=== PATIENT | female | born 1935 | race Caucasian/White ===

== ENCOUNTER 2020-07-21 10:42 | Outpatient (REF) | payer MEDICARE, SELFPAY ==
[2020-07-21 12:55] LABS: Estimated Average Glucose 120 mg/dL; Hemoglobin A1c % 5.8 %
[2020-07-21 13:18] LABS: Creatinine Urine 153.74 mg/dL; Microalbum/Creatinine Ratio Ur 22.1 ug/mg cr
[2020-07-21 13:26] LABS: Alanine Aminotransferase 13 U/L (0-31); Albumin Level 4.3 g/dL (3.5-5.0); Alkaline Phosphatase 76 U/L (39-117); Anion Gap 14 (12-20); Aspartate Amino Transferase 15 U/L (5-31); Bilirubin Total 0.9 mg/dL (0.0-1.0); Blood Urea Nitrogen 15 mg/dL (9-16); Calcium 8.8 mg/dL (8.4-10.2); Carbon Dioxide 25 mmol/L (22-29); Chloride 107 mmol/L (96-108); Cholesterol 198 mg/dL; Estimated Glomerular Filt Rate > 60; Glucose Fasting 110 mg/dL (60-99); HDL Cholesterol 73 mg/dL; LDL Cholesterol Calculated 105 mg/dl; Potassium 4.9 mmol/l (3.3-5.1); Sodium 141 mmol/L (135-145); Total Protein 6.3 g/dL (6.5-8.0); Triglycerides 102 mg/dL
[2020-07-21 13:38] LABS: TSH reflex Free T4 1.27 mIU/mL (0.32-4.0)
== END 2020-07-21 10:43 | disposition home or self-care (01) ==
LOC: HO.LAB 10:42
PROVIDERS: PCP Family Medicine; Visit Provider Family Medicine
DX: Z00.00 Encounter for general adult medical examination without abnormal findings (principal); I10 Essential (primary) hypertension
CPT/HCPCS: 80053; 80061; 82043; 83036; 84443

== ENCOUNTER 2020-08-11 16:05 | Outpatient (REF) | payer MEDICARE, SELFPAY ==
[2020-08-11 16:23] LABS: MANUAL DIFF FLAG NO
[2020-08-11 16:26] LABS: Basophils Absolute Auto 0.1 X10*3/uL (0.0-0.2); Basophils Percent Auto 0.8 % (0-2); Eosinophils Absolute Auto 0.1 X10*3/uL (0.0-0.4); Eosinophils Percent Auto 2.1 % (0-4); Hematocrit 43.4 % (37-47); Hemoglobin 13.6 g/dl (12.0-16.0); Imm Gran Abs Auto 0.11 X10*3/uL (0.00-0.03); Imm Gran Pct Auto 1.7 % (0.0-0.4); Lymphocytes Absolute Auto 1.6 X10*3/uL (1.2-4.9); Lymphocytes Percent Auto 24.3 % (20-40); Mean Corpuscular HGB Conc 31.3 g/dl (31.0-35.0); Mean Corpuscular Hemoglobin 28.6 pg (27.0-33.0); Mean Corpuscular Volume 91.2 fL (80-98); Mean Platelet Volume 12.1 fL (9.4-12.3); Monocytes Absolute Auto 0.8 X10*3/uL (0.1-1.2); Monocytes Percent Auto 11.5 % (2-11); Neutrophils Absolute Auto 3.9 X10*3/uL (2.0-8.3); Neutrophils Percent Auto 59.6 % (45-73); Platelet Count 176 X10*3/uL (160-400); Red Blood Count 4.76 X10*6/uL (4.20-5.50); Red Cell Distribution Width 13.1 % (11.0-16.0); White Blood Count 6.5 X10*3/uL (4.8-10.8)
[2020-08-11 16:46] LABS: Alanine Aminotransferase 18 U/L (0-31); Aspartate Amino Transferase 18 U/L (5-31); Estimated Glomerular Filt Rate > 60
== END 2020-08-11 16:06 | disposition home or self-care (01) ==
LOC: HO.LABR 16:05
PROVIDERS: PCP Family Medicine; Visit Provider Internal Medicine Rheumatology
DX: Z79.899 Other long term (current) drug therapy (principal)
CPT/HCPCS: 36415; 82565; 84450; 84460; 85025

== ENCOUNTER 2020-09-08 14:58 | Outpatient (REF) | payer MEDICARE, SELFPAY ==
[2020-09-08 15:32] LABS: MANUAL DIFF FLAG NO
[2020-09-08 15:43] LABS: Basophils Percent Auto 0.7 % (0-2); Eosinophils Absolute Auto 0.1 X10*3/uL (0.0-0.4); Eosinophils Percent Auto 1.7 % (0-4); Hematocrit 43.2 % (37-47); Hemoglobin 13.6 g/dl (12.0-16.0); Imm Gran Pct Auto 1.9 % (0.0-0.4); Lymphocytes Absolute Auto 1.3 X10*3/uL (1.2-4.9); Lymphocytes Percent Auto 24.3 % (20-40); Mean Corpuscular HGB Conc 31.5 g/dl (31.0-35.0); Mean Corpuscular Hemoglobin 28.5 pg (27.0-33.0); Mean Corpuscular Volume 90.4 fL (80-98); Mean Platelet Volume 12.3 fL (9.4-12.3); Monocytes Absolute Auto 0.8 X10*3/uL (0.1-1.2); Monocytes Percent Auto 14.6 % (2-11); Neutrophils Absolute Auto 3.1 X10*3/uL (2.0-8.3); Neutrophils Percent Auto 56.8 % (45-73); Platelet Count 196 X10*3/uL (160-400); Red Blood Count 4.78 X10*6/uL (4.20-5.50); Red Cell Distribution Width 13.1 % (11.0-16.0); White Blood Count 5.4 X10*3/uL (4.8-10.8)
[2020-09-08 16:00] LABS: Alanine Aminotransferase 18 U/L (0-31); Aspartate Amino Transferase 19 U/L (5-31); Estimated Glomerular Filt Rate > 60
== END 2020-09-08 14:59 | disposition home or self-care (01) ==
LOC: HO.LABR 14:58
PROVIDERS: PCP Family Medicine; Visit Provider Internal Medicine Rheumatology
DX: Z79.899 Other long term (current) drug therapy (principal)
CPT/HCPCS: 36415; 82565; 84450; 84460; 85025

== ENCOUNTER 2020-09-22 | Outpatient (REF) | payer MEDICARE, SELFPAY | END 2020-09-22 00:01 | disposition home or self-care (01) | LOC: HO.WFDLNP | PROVIDERS: Visit Provider Family Medicine | DX: R30.0 Dysuria (principal) | CPT/HCPCS: 87086; 87088; 87186 ==

== ENCOUNTER 2020-10-15 15:20 | Outpatient (REF) | payer MEDICARE, SELFPAY ==
[2020-10-15 15:50] LABS: MANUAL DIFF FLAG NO
[2020-10-15 15:54] LABS: Basophils Absolute Auto 0.1 X10*3/uL (0.0-0.2); Basophils Percent Auto 0.9 % (0-2); Eosinophils Absolute Auto 0.1 X10*3/uL (0.0-0.4); Eosinophils Percent Auto 1.9 % (0-4); Hematocrit 41.7 % (37-47); Hemoglobin 13.2 g/dl (12.0-16.0); Imm Gran Abs Auto 0.09 X10*3/uL (0.00-0.03); Imm Gran Pct Auto 1.4 % (0.0-0.4); Lymphocytes Absolute Auto 1.4 X10*3/uL (1.2-4.9); Lymphocytes Percent Auto 22.2 % (20-40); Mean Corpuscular HGB Conc 31.7 g/dl (31.0-35.0); Mean Corpuscular Hemoglobin 28.4 pg (27.0-33.0); Mean Corpuscular Volume 89.9 fL (80-98); Mean Platelet Volume 11.9 fL (9.4-12.3); Monocytes Absolute Auto 0.8 X10*3/uL (0.1-1.2); Neutrophils Percent Auto 61.6 % (45-73); Platelet Count 214 X10*3/uL (160-400); Red Blood Count 4.64 X10*6/uL (4.20-5.50); White Blood Count 6.4 X10*3/uL (4.8-10.8)
[2020-10-15 16:18] LABS: Alanine Aminotransferase 17 U/L (0-31); Aspartate Amino Transferase 20 U/L (5-31); Estimated Glomerular Filt Rate > 60
== END 2020-10-15 15:21 | disposition home or self-care (01) ==
LOC: HO.LABR 15:20
PROVIDERS: PCP Family Medicine; Visit Provider Internal Medicine Rheumatology
DX: Z79.899 Other long term (current) drug therapy (principal)
CPT/HCPCS: 36415; 82565; 84450; 84460; 85025

== ENCOUNTER 2020-12-09 10:37 | Outpatient (REF) | payer MEDICARE, SELFPAY | END 2020-12-09 10:38 | disposition home or self-care (01) | LOC: HO.LNP 10:37 | PROVIDERS: Visit Provider Family Medicine | DX: R30.0 Dysuria (principal) | CPT/HCPCS: 87086; 87088; 87186 ==

== ENCOUNTER 2020-12-16 15:43 | Outpatient (REF) | payer MEDICARE, SELFPAY ==
[2020-12-16 16:20] LABS: MANUAL DIFF FLAG NO
[2020-12-16 16:26] LABS: Basophils Absolute Auto 0.1 X10*3/uL (0.0-0.2); Eosinophils Absolute Auto 0.1 X10*3/uL (0.0-0.4); Eosinophils Percent Auto 1.7 % (0-4); Hematocrit 40.3 % (37-47); Hemoglobin 12.7 g/dl (12.0-16.0); Imm Gran Abs Auto 0.11 X10*3/uL (0.00-0.03); Imm Gran Pct Auto 1.8 % (0.0-0.4); Lymphocytes Absolute Auto 1.3 X10*3/uL (1.2-4.9); Lymphocytes Percent Auto 21.4 % (20-40); Mean Corpuscular HGB Conc 31.5 g/dl (31.0-35.0); Mean Corpuscular Hemoglobin 28.3 pg (27.0-33.0); Mean Platelet Volume 11.9 fL (9.4-12.3); Monocytes Absolute Auto 0.8 X10*3/uL (0.1-1.2); Monocytes Percent Auto 13.7 % (2-11); Neutrophils Absolute Auto 3.6 X10*3/uL (2.0-8.3); Neutrophils Percent Auto 60.4 % (45-73); Platelet Count 197 X10*3/uL (160-400); Red Blood Count 4.48 X10*6/uL (4.20-5.50); Red Cell Distribution Width 13.3 % (11.0-16.0)
[2020-12-16 16:51] LABS: Anion Gap 14 (12-20); Blood Urea Nitrogen 19 mg/dL (9-16); Calcium 8.7 mg/dL (8.4-10.2); Carbon Dioxide 24 mmol/L (22-29); Chloride 105 mmol/L (96-108); Estimated Glomerular Filt Rate > 60; Glucose Random 116 mg/dL (60-115); Potassium 4.4 mmol/L (3.3-5.1); Sodium 139 mmol/L (135-145)
[2020-12-16 16:53] LABS: Alanine Aminotransferase 13 U/L (0-31); Aspartate Amino Transferase 16 U/L (5-31); Estimated Glomerular Filt Rate > 60
== END 2020-12-16 15:44 | disposition home or self-care (01) ==
LOC: HO.LABR 15:43
PROVIDERS: Absent Provider Family Medicine; PCP Family Medicine; Visit Provider Internal Medicine Rheumatology
DX: Z00.00 Encounter for general adult medical examination without abnormal findings (principal); Z79.899 Other long term (current) drug therapy
CPT/HCPCS: 36415; 80048; 82565; 84450; 84460; 85025

== ENCOUNTER 2021-01-18 14:40 | Outpatient (REF) | payer MEDICARE, SELFPAY ==
[2021-01-18 15:19] LABS: MANUAL DIFF FLAG NO
[2021-01-18 15:30] LABS: Basophils Absolute Auto 0.1 X10*3/uL (0.0-0.2); Eosinophils Absolute Auto 0.1 X10*3/uL (0.0-0.4); Eosinophils Percent Auto 1.7 % (0-4); Hematocrit 42.3 % (37-47); Hemoglobin 13.2 g/dl (12.0-16.0); Imm Gran Abs Auto 0.15 X10*3/uL (0.00-0.03); Imm Gran Pct Auto 2.6 % (0.0-0.4); Lymphocytes Absolute Auto 1.4 X10*3/uL (1.2-4.9); Lymphocytes Percent Auto 23.4 % (20-40); Mean Corpuscular HGB Conc 31.2 g/dl (31.0-35.0); Mean Corpuscular Hemoglobin 28.3 pg (27.0-33.0); Mean Corpuscular Volume 90.8 fL (80-98); Mean Platelet Volume 11.9 fL (9.4-12.3); Monocytes Absolute Auto 0.8 X10*3/uL (0.1-1.2); Monocytes Percent Auto 14.6 % (2-11); Neutrophils Absolute Auto 3.3 X10*3/uL (2.0-8.3); Neutrophils Percent Auto 56.7 % (45-73); Platelet Count 221 X10*3/uL (160-400); Red Blood Count 4.66 X10*6/uL (4.20-5.50); Red Cell Distribution Width 13.2 % (11.0-16.0); White Blood Count 5.8 X10*3/uL (4.8-10.8)
[2021-01-18 15:46] LABS: Alanine Aminotransferase 12 U/L (0-31); Aspartate Amino Transferase 20 U/L (5-31); Estimated Glomerular Filt Rate > 60
== END 2021-01-18 14:41 | disposition home or self-care (01) ==
LOC: HO.LABR 14:40
PROVIDERS: PCP Family Medicine; Visit Provider Internal Medicine Rheumatology
DX: Z79.899 Other long term (current) drug therapy (principal)
CPT/HCPCS: 36415; 82565; 84450; 84460; 85025

== ENCOUNTER 2021-01-22 14:04 | Outpatient (REF) | payer MEDICARE, SELFPAY ==
[2021-01-22 14:26] LABS: Glucose Urine UA NEG (NEG); Leukocyte Esterase Urine 1+ (NEG); Nitrite Urine NEG (NEG); PH 5.5 (5.0-8.0); Specific Gravity - Urine 1.025 (1.005-1.025); Urine Blood 2+ (NEG); Urine Ketones NEG (NEG); Urine Protein NEG (NEG-TRACE)
[2021-01-22 14:28] LABS: Appearance Urine HAZY; Color Urine YELLOW
[2021-01-22 14:38] LABS: Bacteria Urine TRACE /LPF; Squamous Epithelial Cell Urine TRACE /LPF; WBC Urine 30-49 /HPF (0-4)
== END 2021-01-22 14:05 | disposition home or self-care (01) ==
LOC: HO.LNP 14:04
PROVIDERS: Visit Provider Family Medicine
DX: R30.0 Dysuria (principal)
CPT/HCPCS: 81001; 87086; 87088; 87186

== ENCOUNTER 2021-02-15 15:01 | Outpatient (REF) | payer MEDICARE, SELFPAY ==
[2021-02-15 15:29] LABS: MANUAL DIFF FLAG NO
[2021-02-15 15:35] LABS: Basophils Absolute Auto 0.1 X10*3/uL (0.0-0.2); Basophils Percent Auto 1.1 % (0-2); Eosinophils Absolute Auto 0.1 X10*3/uL (0.0-0.4); Eosinophils Percent Auto 2.5 % (0-4); Hematocrit 40.8 % (37-47); Hemoglobin 12.8 g/dl (12.0-16.0); Imm Gran Abs Auto 0.07 X10*3/uL (0.00-0.03); Imm Gran Pct Auto 1.5 % (0.0-0.4); Lymphocytes Absolute Auto 1.3 X10*3/uL (1.2-4.9); Lymphocytes Percent Auto 26.8 % (20-40); Mean Corpuscular HGB Conc 31.4 g/dl (31.0-35.0); Mean Corpuscular Hemoglobin 28.5 pg (27.0-33.0); Mean Corpuscular Volume 90.9 fL (80-98); Mean Platelet Volume 11.9 fL (9.4-12.3); Monocytes Absolute Auto 0.6 X10*3/uL (0.1-1.2); Monocytes Percent Auto 12.1 % (2-11); Neutrophils Absolute Auto 2.7 X10*3/uL (2.0-8.3); Platelet Count 190 X10*3/uL (160-400); Red Blood Count 4.49 X10*6/uL (4.20-5.50); Red Cell Distribution Width 13.3 % (11.0-16.0); White Blood Count 4.7 X10*3/uL (4.8-10.8)
[2021-02-15 15:53] LABS: Alanine Aminotransferase 14 U/L (0-31); Aspartate Amino Transferase 15 U/L (5-31); Estimated Glomerular Filt Rate > 60
== END 2021-02-15 15:02 | disposition home or self-care (01) ==
LOC: HO.LABR 15:01
PROVIDERS: PCP Family Medicine; Visit Provider Internal Medicine Rheumatology
DX: Z79.899 Other long term (current) drug therapy (principal)
CPT/HCPCS: 36415; 82565; 84450; 84460; 85025

== ENCOUNTER 2021-04-20 15:22 | Outpatient (REF) | payer MEDICARE, SELFPAY ==
[2021-04-20 15:53] LABS: MANUAL DIFF FLAG NO
[2021-04-20 15:54] LABS: Basophils Absolute Auto 0.1 X10*3/uL (0.0-0.2); Basophils Percent Auto 0.8 % (0-2); Eosinophils Absolute Auto 0.1 X10*3/uL (0.0-0.4); Eosinophils Percent Auto 1.7 % (0-4); Hematocrit 41.5 % (37-47); Hemoglobin 13.1 g/dl (12.0-16.0); Imm Gran Abs Auto 0.19 X10*3/uL (0.00-0.03); Imm Gran Pct Auto 3.1 % (0.0-0.4); Lymphocytes Absolute Auto 1.5 X10*3/uL (1.2-4.9); Lymphocytes Percent Auto 24.6 % (20-40); Mean Corpuscular HGB Conc 31.6 g/dl (31.0-35.0); Mean Corpuscular Hemoglobin 28.4 pg (27.0-33.0); Mean Platelet Volume 12.6 fL (9.4-12.3); Monocytes Absolute Auto 0.8 X10*3/uL (0.1-1.2); Monocytes Percent Auto 13.2 % (2-11); Neutrophils Absolute Auto 3.4 X10*3/uL (2.0-8.3); Neutrophils Percent Auto 56.6 % (45-73); Platelet Count 188 X10*3/uL (160-400); Red Blood Count 4.61 X10*6/uL (4.20-5.50); Red Cell Distribution Width 13.3 % (11.0-16.0); White Blood Count 6.1 X10*3/uL (4.8-10.8)
[2021-04-20 16:15] LABS: Alanine Aminotransferase 15 U/L (0-31); Aspartate Amino Transferase 18 U/L (5-31); Estimated Glomerular Filt Rate > 60
== END 2021-04-20 15:23 | disposition home or self-care (01) ==
LOC: HO.LABR 15:22
PROVIDERS: PCP Family Medicine; Visit Provider Internal Medicine Rheumatology
DX: Z79.899 Other long term (current) drug therapy (principal)
CPT/HCPCS: 36415; 82565; 84450; 84460; 85025

== ENCOUNTER 2021-06-11 14:59 | Outpatient (REF) | payer MEDICARE, SELFPAY ==
[2021-06-11 16:00] LABS: MANUAL DIFF FLAG NO
[2021-06-11 16:04] LABS: Basophils Percent Auto 0.8 % (0-2); Eosinophils Absolute Auto 0.1 X10*3/uL (0.0-0.4); Eosinophils Percent Auto 2.3 % (0-4); Hematocrit 40.1 % (37-47); Hemoglobin 12.7 g/dl (12.0-16.0); Imm Gran Abs Auto 0.14 X10*3/uL (0.00-0.03); Imm Gran Pct Auto 2.7 % (0.0-0.4); Lymphocytes Absolute Auto 1.3 X10*3/uL (1.2-4.9); Lymphocytes Percent Auto 23.7 % (20-40); Mean Corpuscular HGB Conc 31.7 g/dl (31.0-35.0); Mean Corpuscular Hemoglobin 28.5 pg (27.0-33.0); Mean Corpuscular Volume 89.9 fL (80-98); Mean Platelet Volume 12.3 fL (9.4-12.3); Monocytes Absolute Auto 0.8 X10*3/uL (0.1-1.2); Monocytes Percent Auto 14.6 % (2-11); Neutrophils Percent Auto 55.9 % (45-73); Platelet Count 205 X10*3/uL (160-400); Red Blood Count 4.46 X10*6/uL (4.20-5.50); Red Cell Distribution Width 13.2 % (11.0-16.0); White Blood Count 5.3 X10*3/uL (4.8-10.8)
[2021-06-11 16:45] LABS: Alanine Aminotransferase 14 U/L (0-31); Aspartate Amino Transferase 15 U/L (5-31); Estimated Glomerular Filt Rate > 60
== END 2021-06-11 15:00 | disposition home or self-care (01) ==
LOC: HO.LABR 14:59
PROVIDERS: PCP Family Medicine; Visit Provider Internal Medicine Rheumatology
DX: Z79.899 Other long term (current) drug therapy (principal)
CPT/HCPCS: 36415; 82565; 84450; 84460; 85025

== ENCOUNTER 2021-08-16 14:03 | Outpatient (REF) | payer MEDICARE, SELFPAY ==
[2021-08-16 14:23] LABS: MANUAL DIFF FLAG NO
[2021-08-16 14:44] LABS: Basophils Percent Auto 0.6 % (0-2); Eosinophils Absolute Auto 0.1 X10*3/uL (0.0-0.4); Eosinophils Percent Auto 1.7 % (0-4); Hematocrit 41.4 % (37.0-47.0); Hemoglobin 13.2 g/dl (12.0-16.0); Imm Gran Abs Auto 0.11 X10*3/uL (0.00-0.03); Imm Gran Pct Auto 2.1 % (0.0-0.4); Lymphocytes Absolute Auto 1.2 X10*3/uL (1.2-4.9); Lymphocytes Percent Auto 22.2 % (20-40); Mean Corpuscular HGB Conc 31.9 g/dl (31.0-35.0); Mean Corpuscular Hemoglobin 28.1 pg (27.0-33.0); Mean Corpuscular Volume 88.1 fL (80.0-98.0); Mean Platelet Volume 12.4 fL (9.4-12.3); Monocytes Absolute Auto 0.8 X10*3/uL (0.1-1.2); Monocytes Percent Auto 14.6 % (2-11); Neutrophils Absolute Auto 3.1 x10*3/uL (2.0-8.3); Neutrophils Percent Auto 58.8 % (45-73); Platelet Count 199 X10*3/uL (160-400); White Blood Count 5.3 X10*3/uL (4.8-10.8)
[2021-08-16 15:06] LABS: Alanine Aminotransferase 15 U/L (0-31); Aspartate Amino Transferase 18 U/L (5-31); Estimated Glomerular Filt Rate > 60
== END 2021-08-16 14:04 | disposition home or self-care (01) ==
LOC: HO.LABR 14:03
PROVIDERS: PCP Family Medicine; Visit Provider Internal Medicine Rheumatology
DX: Z79.899 Other long term (current) drug therapy (principal)
CPT/HCPCS: 36415; 82565; 84450; 84460; 85025

== ENCOUNTER 2021-09-28 10:56 | Outpatient (REF) | payer MEDICARE, SELFPAY ==
[2021-09-28 11:18] LABS: MANUAL DIFF FLAG NO
[2021-09-28 12:15] LABS: Basophils Percent Auto 0.9 % (0-2); Eosinophils Absolute Auto 0.1 X10*3/uL (0.0-0.4); Hematocrit 41.5 % (37.0-47.0); Hemoglobin 13.1 g/dl (12.0-16.0); Imm Gran Abs Auto 0.09 X10*3/uL (0.00-0.03); Lymphocytes Percent Auto 22.1 % (20-40); Mean Corpuscular HGB Conc 31.6 g/dl (31.0-35.0); Mean Corpuscular Hemoglobin 28.2 pg (27.0-33.0); Mean Corpuscular Volume 89.2 fL (80.0-98.0); Mean Platelet Volume 12.7 fL (9.4-12.3); Monocytes Absolute Auto 0.5 X10*3/uL (0.1-1.2); Monocytes Percent Auto 11.7 % (2-11); Neutrophils Absolute Auto 2.8 x10*3/uL (2.0-8.3); Neutrophils Percent Auto 61.3 % (45-73); Platelet Count 191 X10*3/uL (160-400); Red Blood Count 4.65 X10*6/uL (4.20-5.50); Red Cell Distribution Width 13.5 % (11.0-16.0); White Blood Count 4.6 X10*3/uL (4.8-10.8)
[2021-09-28 12:21] LABS: Appearance Urine CLEAR; Color Urine YELLOW; Glucose Urine UA NEG (NEG); Leukocyte Esterase Urine NEG (NEG); Nitrite Urine NEG (NEG); PH 5.5 (5.0-8.0); Specific Gravity - Urine >= 1.030 (1.005-1.025); Urine Blood NEG (NEG); Urine Ketones NEG (NEG); Urine Protein NEG (NEG-TRACE)
[2021-09-28 12:48] LABS: Alanine Aminotransferase 15 U/L (0-31); Albumin Level 4.1 g/dL (3.5-5.0); Alkaline Phosphatase 78 U/L (39-117); Anion Gap 10 (12-20); Aspartate Amino Transferase 13 U/L (5-31); Bilirubin Total 0.8 mg/dL (0.0-1.0); Blood Urea Nitrogen 13 mg/dL (9-16); Calcium 9.2 mg/dL (8.4-10.2); Carbon Dioxide 26 mmol/L (22-29); Chloride 110 mmol/L (96-108); Cholesterol 194 mg/dL; Estimated Glomerular Filt Rate > 60; Glucose Fasting 117 mg/dL (60-99); HDL Cholesterol 70 mg/dL; LDL Cholesterol Calculated 102 mg/dl; Potassium 4.3 mmol/L (3.3-5.1); Sodium 142 mmol/L (135-145); Total Protein 6.1 g/dL (6.5-8.0); Triglycerides 111 mg/dL
[2021-09-28 12:49] LABS: Creatinine Urine 89.13 mg/dL; Microalbum/Creatinine Ratio Ur 26.9 ug/mg cr
[2021-09-28 12:56] LABS: TSH reflex Free T4 1.72 uIU/mL (0.32-4.0)
== END 2021-09-28 10:57 | disposition home or self-care (01) ==
LOC: HO.LAB 10:56
PROVIDERS: PCP Family Medicine; Visit Provider Family Medicine
DX: Z00.00 Encounter for general adult medical examination without abnormal findings (principal); I10 Essential (primary) hypertension; Z13.220 Encounter for screening for lipoid disorders; Z13.29 Encounter for screening for other suspected endocrine disorder
CPT/HCPCS: 36415; 80053; 80061; 81003; 82043; 84443; 85025

== ENCOUNTER 2021-10-12 15:43 | Outpatient (REF) | payer MEDICARE, SELFPAY ==
[2021-10-12 16:00] LABS: MANUAL DIFF FLAG NO
[2021-10-12 16:18] LABS: Basophils Absolute Auto 0.1 X10*3/uL (0.0-0.2); Basophils Percent Auto 0.9 % (0-2); Eosinophils Absolute Auto 0.1 X10*3/uL (0.0-0.4); Eosinophils Percent Auto 1.7 % (0-4); Hematocrit 42.8 % (37.0-47.0); Hemoglobin 13.5 g/dl (12.0-16.0); Imm Gran Abs Auto 0.11 X10*3/uL (0.00-0.03); Imm Gran Pct Auto 1.9 % (0.0-0.4); Lymphocytes Absolute Auto 1.4 X10*3/uL (1.2-4.9); Lymphocytes Percent Auto 24.3 % (20-40); Mean Corpuscular HGB Conc 31.5 g/dl (31.0-35.0); Mean Corpuscular Hemoglobin 28.2 pg (27.0-33.0); Mean Corpuscular Volume 89.5 fL (80.0-98.0); Mean Platelet Volume 12.2 fL (9.4-12.3); Monocytes Absolute Auto 0.7 X10*3/uL (0.1-1.2); Neutrophils Absolute Auto 3.4 x10*3/uL (2.0-8.3); Neutrophils Percent Auto 59.2 % (45-73); Platelet Count 188 X10*3/uL (160-400); Red Blood Count 4.78 X10*6/uL (4.20-5.50); Red Cell Distribution Width 13.3 % (11.0-16.0); White Blood Count 5.8 X10*3/uL (4.8-10.8)
[2021-10-12 16:41] LABS: Alanine Aminotransferase 13 U/L (0-31); Aspartate Amino Transferase 17 U/L (5-31); Estimated Glomerular Filt Rate > 60
== END 2021-10-12 15:44 | disposition home or self-care (01) ==
LOC: HO.LABR 15:43
PROVIDERS: PCP Family Medicine; Visit Provider Internal Medicine Rheumatology
DX: Z79.899 Other long term (current) drug therapy (principal)
CPT/HCPCS: 36415; 82565; 84450; 84460; 85025

== ENCOUNTER 2021-12-17 15:26 | Outpatient (REF) | payer MEDICARE, SELFPAY ==
[2021-12-17 15:38] LABS: MANUAL DIFF FLAG NO
[2021-12-17 16:12] LABS: Basophils Absolute Auto 0.1 X10*3/uL (0.0-0.2); Basophils Percent Auto 0.8 % (0-2); Eosinophils Absolute Auto 0.1 X10*3/uL (0.0-0.4); Eosinophils Percent Auto 1.6 % (0-4); Hematocrit 43.4 % (37.0-47.0); Hemoglobin 13.2 g/dl (12.0-16.0); Imm Gran Abs Auto 0.12 X10*3/uL (0.00-0.03); Imm Gran Pct Auto 1.6 % (0.0-0.4); Lymphocytes Absolute Auto 1.6 X10*3/uL (1.2-4.9); Lymphocytes Percent Auto 21.5 % (20-40); Mean Corpuscular HGB Conc 30.4 g/dl (31.0-35.0); Mean Corpuscular Hemoglobin 27.5 pg (27.0-33.0); Mean Corpuscular Volume 90.4 fL (80.0-98.0); Mean Platelet Volume 12.7 fL (9.4-12.3); Neutrophils Absolute Auto 4.6 x10*3/uL (2.0-8.3); Neutrophils Percent Auto 61.5 % (45-73); Platelet Count 195 X10*3/uL (160-400); Red Cell Distribution Width 13.6 % (11.0-16.0); White Blood Count 7.4 X10*3/uL (4.8-10.8)
[2021-12-17 16:36] LABS: Alanine Aminotransferase 16 U/L (0-31); Aspartate Amino Transferase 16 U/L (5-31); Estimated Glomerular Filt Rate > 60
== END 2021-12-17 15:27 | disposition home or self-care (01) ==
LOC: HO.LABR 15:26
PROVIDERS: PCP Family Medicine; Visit Provider Internal Medicine Rheumatology
DX: Z79.899 Other long term (current) drug therapy (principal)
CPT/HCPCS: 36415; 82565; 84450; 84460; 85025

== ENCOUNTER 2022-02-11 15:34 | Outpatient (REF) | payer MEDICARE, SELFPAY ==
[2022-02-11 17:23] LABS: Hemoglobin 13.3 g/dl (12.0-16.0); Mean Corpuscular HGB Conc 31.1 g/dl (31.0-35.0); PLT CLUMP 1; SCAN SMEAR FLAG 1
[2022-02-11 17:25] LABS: Basophils Percent Auto 0.7 % (0-2); Eosinophils Absolute Auto 0.1 X10*3/uL (0.0-0.4); Hematocrit 42.8 % (37.0-47.0); Imm Gran Abs Auto 0.09 X10*3/uL (0.00-0.03); Imm Gran Pct Auto 1.6 % (0.0-0.4); Lymphocytes Absolute Auto 1.5 X10*3/uL (1.2-4.9); Lymphocytes Percent Auto 26.5 % (20-40); MANUAL DIFF FLAG SCAN; Mean Corpuscular Hemoglobin 28.1 pg (27.0-33.0); Mean Corpuscular Volume 90.3 fL (80.0-98.0); Monocytes Absolute Auto 0.7 X10*3/uL (0.1-1.2); Monocytes Percent Auto 13.4 % (2-11); Neutrophils Absolute Auto 3.1 x10*3/uL (2.0-8.3); Neutrophils Percent Auto 55.8 % (45-73); Red Blood Count 4.74 X10*6/uL (4.20-5.50); Red Cell Distribution Width 13.5 % (11.0-16.0)
[2022-02-11 17:39] LABS: Alanine Aminotransferase 16 U/L (0-31); Aspartate Amino Transferase 21 U/L (5-31); Estimated Glomerular Filt Rate > 60
[2022-02-11 17:43] LABS: PLT ABN DIST 1
[2022-02-11 17:44] LABS: White Blood Count 5.5 X10*3/uL (4.8-10.8)
[2022-02-11 17:58] LABS: SLIDE REVIEW VERIFIED
== END 2022-02-11 15:35 | disposition home or self-care (01) ==
LOC: HO.LABR 15:34
PROVIDERS: PCP Family Medicine; Visit Provider Internal Medicine Rheumatology
DX: Z79.899 Other long term (current) drug therapy (principal)
CPT/HCPCS: 36415; 82565; 84450; 84460; 85025

== ENCOUNTER 2022-05-13 15:40 | Outpatient (REF) | payer MEDICARE, SELFPAY ==
[2022-05-13 16:30] LABS: Basophils Absolute Auto 0.1 X10*3/uL (0.0-0.2); Basophils Percent Auto 0.8 % (0-2); Eosinophils Absolute Auto 0.1 X10*3/uL (0.0-0.4); Eosinophils Percent Auto 1.7 % (0-4); Hemoglobin 13.7 g/dl (12.0-16.0); SCAN SMEAR FLAG 1
[2022-05-13 16:32] LABS: Hematocrit 42.7 % (37.0-47.0); Imm Gran Abs Auto 0.08 X10*3/uL (0.00-0.03); Imm Gran Pct Auto 1.3 % (0.0-0.4); Lymphocytes Absolute Auto 1.7 X10*3/uL (1.2-4.9); Lymphocytes Percent Auto 27.6 % (20-40); MANUAL DIFF FLAG SCAN; Mean Corpuscular HGB Conc 32.1 g/dl (31.0-35.0); Mean Corpuscular Volume 87.3 fL (80.0-98.0); Mean Platelet Volume 12.8 fL (9.4-12.3); Monocytes Absolute Auto 0.7 X10*3/uL (0.1-1.2); Monocytes Percent Auto 11.2 % (2-11); Neutrophils Absolute Auto 3.4 x10*3/uL (2.0-8.3); Neutrophils Percent Auto 57.4 % (45-73); Platelet Count 177 X10*3/uL (160-400); Red Blood Count 4.89 X10*6/uL (4.20-5.50); Red Cell Distribution Width 13.7 % (11.0-16.0)
[2022-05-13 16:34] LABS: PLT ABN DIST 1
[2022-05-13 16:48] LABS: SLIDE REVIEW VERIFIED
== END 2022-05-13 15:41 | disposition home or self-care (01) ==
LOC: HO.LABR 15:40
PROVIDERS: PCP Family Medicine; Visit Provider Internal Medicine Rheumatology
DX: Z79.899 Other long term (current) drug therapy (principal)
CPT/HCPCS: 36415; 85025

== ENCOUNTER 2022-05-16 11:09 | Outpatient (REF) | payer MEDICARE, SELFPAY ==
[2022-05-16 11:56] LABS: Basophils Absolute Auto 0.1 X10*3/uL (0.0-0.2); Basophils Percent Auto 1.5 % (0-2); Eosinophils Absolute Auto 0.1 X10*3/uL (0.0-0.4); Eosinophils Percent Auto 1.5 % (0-4); Hematocrit 43.3 % (37.0-47.0); Hemoglobin 13.8 g/dl (12.0-16.0); Imm Gran Abs Auto 0.08 X10*3/uL (0.00-0.03); Imm Gran Pct Auto 1.5 % (0.0-0.4); Lymphocytes Absolute Auto 1.2 X10*3/uL (1.2-4.9); Lymphocytes Percent Auto 21.4 % (20-40); MANUAL DIFF FLAG NO; Mean Corpuscular HGB Conc 31.9 g/dl (31.0-35.0); Mean Corpuscular Hemoglobin 27.9 pg (27.0-33.0); Mean Corpuscular Volume 87.7 fL (80.0-98.0); Mean Platelet Volume 12.5 fL (9.4-12.3); Monocytes Absolute Auto 0.6 X10*3/uL (0.1-1.2); Monocytes Percent Auto 10.9 % (2-11); Neutrophils Absolute Auto 3.4 x10*3/uL (2.0-8.3); Neutrophils Percent Auto 63.2 % (45-73); Platelet Count 182 X10*3/uL (160-400); Red Blood Count 4.94 X10*6/uL (4.20-5.50); Red Cell Distribution Width 13.8 % (11.0-16.0); White Blood Count 5.4 X10*3/uL (4.8-10.8)
[2022-05-16 13:08] LABS: Alanine Aminotransferase 13 U/L (0-31); Aspartate Amino Transferase 16 U/L (5-31); Estimated Glomerular Filt Rate > 60
== END 2022-05-16 11:10 | disposition home or self-care (01) ==
LOC: HO.LABR 11:09
PROVIDERS: PCP Family Medicine; Visit Provider Internal Medicine Rheumatology
DX: Z79.899 Other long term (current) drug therapy (principal)
CPT/HCPCS: 36415; 82565; 84450; 84460; 85025

== ENCOUNTER 2022-06-15 16:04 | Outpatient (REF) | payer MEDICARE, SELFPAY ==
[2022-06-15 16:26] LABS: MANUAL DIFF FLAG NO
[2022-06-15 17:44] LABS: Basophils Absolute Auto 0.1 X10*3/uL (0.0-0.2); Basophils Percent Auto 1.2 % (0-2); Eosinophils Absolute Auto 0.2 X10*3/uL (0.0-0.4); Eosinophils Percent Auto 2.6 % (0-4); Hematocrit 42.5 % (37.0-47.0); Hemoglobin 13.5 g/dl (12.0-16.0); Imm Gran Abs Auto 0.09 X10*3/uL (0.00-0.03); Imm Gran Pct Auto 1.5 % (0.0-0.4); Lymphocytes Absolute Auto 1.5 X10*3/uL (1.2-4.9); Lymphocytes Percent Auto 25.9 % (20-40); Mean Corpuscular HGB Conc 31.8 g/dl (31.0-35.0); Mean Corpuscular Hemoglobin 28.2 pg (27.0-33.0); Mean Corpuscular Volume 88.7 fL (80.0-98.0); Monocytes Absolute Auto 0.7 X10*3/uL (0.1-1.2); Monocytes Percent Auto 12.7 % (2-11); Neutrophils Absolute Auto 3.3 x10*3/uL (2.0-8.3); Neutrophils Percent Auto 56.1 % (45-73); Platelet Count 177 X10*3/uL (160-400); Red Blood Count 4.79 X10*6/uL (4.20-5.50); Red Cell Distribution Width 13.7 % (11.0-16.0); White Blood Count 5.8 X10*3/uL (4.8-10.8)
[2022-06-15 18:04] LABS: Alanine Aminotransferase 14 U/L (0-31); Aspartate Amino Transferase 19 U/L (5-31); Estimated Glomerular Filt Rate > 60
== END 2022-06-15 16:05 | disposition home or self-care (01) ==
LOC: HO.LABR 16:04
PROVIDERS: PCP Family Medicine; Visit Provider Internal Medicine Rheumatology
DX: Z79.899 Other long term (current) drug therapy (principal)
CPT/HCPCS: 36415; 82565; 84450; 84460; 85025

== ENCOUNTER 2022-10-05 10:27 | Outpatient (REF) | payer MEDICARE, SELFPAY ==
[2022-10-05 13:59] LABS: MANUAL DIFF FLAG NO
[2022-10-05 14:07] LABS: Basophils Absolute Auto 0.1 X10*3/uL (0.0-0.2); Eosinophils Absolute Auto 0.2 X10*3/uL (0.0-0.4); Eosinophils Percent Auto 2.6 % (0-4); Hematocrit 45.1 % (37.0-47.0); Hemoglobin 14.3 g/dl (12.0-16.0); Imm Gran Abs Auto 0.07 X10*3/uL (0.00-0.03); Imm Gran Pct Auto 1.2 % (0.0-0.4); Lymphocytes Absolute Auto 1.6 X10*3/uL (1.2-4.9); Mean Corpuscular HGB Conc 31.7 g/dl (31.0-35.0); Mean Corpuscular Hemoglobin 28.4 pg (27.0-33.0); Mean Corpuscular Volume 89.7 fL (80.0-98.0); Monocytes Absolute Auto 0.7 X10*3/uL (0.1-1.2); Monocytes Percent Auto 11.4 % (2-11); Neutrophils Absolute Auto 3.3 x10*3/uL (2.0-8.3); Neutrophils Percent Auto 55.8 % (45-73); Platelet Count 187 X10*3/uL (160-400); Red Blood Count 5.03 X10*6/uL (4.20-5.50); Red Cell Distribution Width 13.5 % (11.0-16.0); White Blood Count 5.9 X10*3/uL (4.8-10.8)
[2022-10-05 14:44] LABS: Alanine Aminotransferase 15 U/L (0-31); Albumin Level 4.1 g/dL (3.5-5.0); Alkaline Phosphatase 84 U/L (39-117); Anion Gap 11 (12-20); Aspartate Amino Transferase 17 U/L (5-31); Bilirubin Total 0.9 mg/dL (0.0-1.0); Blood Urea Nitrogen 15 mg/dL (9-16); Calcium 9.1 mg/dL (8.4-10.2); Carbon Dioxide 26 mmol/L (22-29); Chloride 106 mmol/L (96-108); Cholesterol 188 mg/dL; Estimated Glomerular Filt Rate > 60; Glucose Fasting 114 mg/dL (60-99); HDL Cholesterol 70 mg/dL; LDL Cholesterol Calculated 101 mg/dl; Potassium 4.4 mmol/L (3.3-5.1); Sodium 139 mmol/L (135-145); Total Protein 6.2 g/dL (6.5-8.0); Triglycerides 87 mg/dL
[2022-10-05 14:49] LABS: TSH reflex Free T4 1.91 uIU/mL (0.32-4.0)
[2022-10-05 14:52] LABS: Appearance Urine Hazy; Color Urine Yellow; Glucose Urine UA Negative (Negative); Leukocyte Esterase Urine Negative (Negative); Nitrite Urine Negative (Negative); PH 5.5 (5.0-9.0); Specific Gravity - Urine 1.025 (1.005-1.025); Urine Blood Negative (Negative); Urine Ketones Negative (Negative); Urine Protein Negative (Neg-Trace)
[2022-10-05 15:55] LABS: Creatinine Urine 105.63 mg/dL; Microalbum/Creatinine Ratio Ur 18.9 ug/mg cr
== END 2022-10-05 10:28 | disposition home or self-care (01) ==
LOC: HO.WFDLDS 10:27
PROVIDERS: Visit Provider Family Medicine
DX: Z00.00 Encounter for general adult medical examination without abnormal findings (principal); I10 Essential (primary) hypertension
CPT/HCPCS: 36415; 80053; 80061; 81003; 82043; 84443; 85025

== ENCOUNTER 2023-04-24 15:30 | Outpatient (AMB) | payer MEDICARE, SELFPAY ==
--- NOTE | 2023-04-24 15:35 | MHC.PC.OV ---
Vital Signs 04/24/23 15:42 04/24/23 16:43 Height 5 ft 8 in Weight 188 lb BMI 28.6 BP 140/78 H 136/80 Blood Pressure Location Lt brachial Rt brachial Position Sitting Pulse 76 Pulse Source Pulse Oximeter Pulse Oximetry (%) 95 Intake Visit Reasons: f/u hypertension Intake Note: pt is here for f/u htn Functional Architect Required: No Accompanied by: Self / Same As Patient Allergies No Known Allergies Allergy (Verified 04/24/23 15:36) Tobacco use date assessed: 04/24/23 Fall risk assessment: No Falls in past year Last assessed Fall Risk: 04/24/23 Dental Screening Dental Screen Date: 04/24/23 Did you have a dental visit in the last 12 months?: Yes Did you have a dental problem in the last 6 months where you did not have access to dental care?: No Was dental information given to patient?: Patient has dentist HPI f/u hypertension HPI Details 87 y/o female presents to f/u hypertension. Blood pressure today is 140/78. She is on lisinopril 20mg and hydrochlorothiazide 12.5mg. She reports hydrochlorothiazide has been making her feel dizzy. BP upon relaxation is 136/80. HPI Comments History of Present Illness Details Documentation assistance for Carroll Patel MD, was provided by Tj Lozada, Merchandising Stock Associate on 04/24/2023 4:35 PM ELVI. John, Dr. Patel, have read, observed, and verified documentation. [facility] Medical History Essential hypertension Pre-diabetes Surgical History (Updated 04/24/23 @ 15:37 by Spencer Radford CMA) No pertinent past surgical history Social History Housing: House Alcohol intake: current Alcohol intake frequency: holidays/special occasions only Patient Tobacco Use Status: Never used Tobacco e-Cigarette/Vaping Use: Never Used Second Hand Smoke Exposure: No service: No Current occupational status: retired Current occupational exposures/hazards: No Cognitive needs: No Hearing needs: No Vision needs: No Questionnaire Thrive Questionnaire Date Thrive assessed: 10/11/22 CARINA-7 AMB Questionnaire CARINA-7 Date CARINA - 7 assessed: 10/05/21 Source: Developed by Drs. Lj Maharaj, Ami Marks, Arik Castillo and colleagues, with an educational yaa from [employer]. Review of Systems Const Denies chills, Denies fatigue, Denies fever(s), Denies headache(s) and Denies weakness ENT Denies dizziness and Denies headache(s) Card Denies dyspnea Resp Denies cough, Denies dyspnea, Denies wheezing and Denies other (shortness of breath) Musc Denies numbness and Denies tingling Neuro Denies dizziness, Denies headache(s), Denies numbness, Denies tingling and Denies weakness Psych Denies anxiety and Denies depression Endo Denies fatigue Aller/Immun Denies wheezing Physical exam (Primary Care) Vital Signs: Last Vital Signs Pulse 76 04/24/23 15:42 BP 140/78 H 04/24/23 15:42 Pulse Ox 95 04/24/23 15:42 BMI result Body Mass Index 28.6 Tobacco/Smoking Status: Tobacco use Status Tobacco use date assessed 04/24/23 04/24/23 15:38 Patient Tobacco Use Status Never used Tobacco 04/24/23 15:38 e-Cigarette/Vaping Use Never Used 04/24/23 15:38 Thrive Assessment: Date of Thrive Assessment Date Thrive assessed 10/11/22 04/24/23 15:38 Const General: well developed; No acute distress Nutritional Appearance: well nourished Orientation/consciousness: patient oriented x3 HENMT Head: Yes normocephalic and Yes atraumatic Eyes General: appearance normal, both eyes and all related structures Pupils: Equal, round and reactive pupils present EOM: EOMs intact bilaterally Resp Effort & Inspection: normal respiratory effort Neuro General: patient oriented x3 and gait normal Cranial nerves: Yes Equal, round and reactive pupils present Psych Affect: normal affect Assessment and Plan Assessment & Plan (1) Essential hypertension: Code(s): I10 - Essential (primary) hypertension Plan: Blood pressure improves with relaxation and is fairly well controlled. Goal is less than 140/90 She will take lisinopril daily. She wants to discontinue hydrochlorothiazide entirely. She will take an additional half tablet of lisinopril if she notes that her blood pressures are creeping up and she will let me know - would send script so she will not run out early. Coding Level of Care Code Est Pt Level 3 (79473) Diagnoses Essential hypertension I10
[2023-04-24 15:42] VITALS: BP 140/78; PULSE 76; O2SAT 95; BMI 28.6
[2023-04-24 16:43] VITALS: BP 136/80
== END 2023-04-24 16:46 | disposition home or self-care (01) ==
PROVIDERS: PCP Family Medicine; Visit Provider Family Medicine
DX: I10 Essential (primary) hypertension (principal)
CPT/HCPCS: 99213

== ENCOUNTER 2023-07-14 15:14 | Outpatient (REF) | payer MEDICARE, SELFPAY ==
[2023-07-14 17:20] LABS: Appearance Urine Clear; Color Urine Yellow; Glucose Urine UA Negative (Negative); Leukocyte Esterase Urine Trace (Negative); Nitrite Urine Negative (Negative); Specific Gravity - Urine <= 1.005 (1.005-1.025); UMIC TRIGGER UACC YES; Urine Blood Negative (Negative); Urine Ketones Negative (Negative); Urine Protein Negative (Neg-Trace)
[2023-07-14 17:35] LABS: Bacteria Urine None Seen (None Seen); Hyaline Casts Urine 0-2 /LPF (0-2); RBC Urine 0-2 /HPF (0-2); Squamous Epithelial Cell Urine 0-2 /HPF (0-2); UACC Culture Trigger YES
== END 2023-07-14 15:15 | disposition home or self-care (01) ==
LOC: HO.LAB 15:14
PROVIDERS: PCP Family Medicine; Visit Provider Nurse Practitioner Family
DX: R30.0 Dysuria (principal)
CPT/HCPCS: 81001; 87086

== ENCOUNTER 2023-08-01 15:46 | Outpatient (AMB) | payer MEDICARE, SELFPAY ==
[2023-08-01 15:50] VITALS: BP 134/80; PULSE 68; O2SAT 97; BMI 29.0
--- NOTE | 2023-08-01 15:50 | A.OFFPC_ITS ---
Vital Signs 08/01/23 15:50 Height 5 ft 8 in Weight 191 lb BMI 29.0 BP 134/80 Blood Pressure Location Lt brachial Position Sitting Pulse 68 Pulse Source Pulse Oximeter Pulse Oximetry (%) 97 Oxygen Delivery Method Room Air Intake Visit Reasons: f/u hypertension Intake Note: Patient is here to follow up on hypertension today. Patient would like to discuss the last urine test. Patient : No Allergies No Known Allergies Allergy (Verified 08/01/23 15:54) Medication List - Last Reconciled 08/01/23 by Carroll Patel MD blood pressure monitor Automatic, Digital. Dx: I10. Daily As directed, 999 days/lifetime dorzolamide-timolol 22.3-6.8 mg/mL 1 drp ophthalmic (eye) BID lisinopril 20 mg PO DAILY 90 days naproxen 500 mg PO Q12H PRN tramadol 50 mg PO DAILY PRN Tobacco use date assessed: 08/01/23 Fall risk assessment: No Falls in past year Last assessed Fall Risk: 08/01/23 HPI f/u hypertension HPI Details 88 y/o female presents to f/u hypertensi on and chronic conditions. Had discontinued her HCTZ as she was not taking it. Blood pressure today 134/80. She is on lisinopril 20mg daily. [facility], [facility] Medical History Pre-diabetes Essential hypertension Surgical History No pertinent past surgical history Social History Housing: House Alcohol intake: current Alcohol intake frequency: holidays/special occasions only Patient Tobacco Use Status: Never used Tobacco e-Cigarette/Vaping Use: Never Used Second Hand Smoke Exposure: No service: No Current occupational status: retired Current occupational exposures/hazards: No Cognitive needs: No Hearing needs: No Vision needs: No Questionnaire Thrive Questionnaire Date Thrive assessed: 10/11/22 CARINA-7 AMB Questionnaire CARINA-7 Date CARINA - 7 assessed: 10/05/21 Source: Developed by Drs. Lj Maharaj, Ami Marks, Arik Castillo and colleagues, with an educational yaa from [employer]. Review of Systems Const Denies chills, Denies fatigue, Denies fever(s), Denies headache(s) and Denies weakness ENT Denies dizziness and Denies headache(s) Card Denies chest pain, Denies lightheadedness, Denies dyspnea and Denies other (Palpitations) Resp Denies cough, Denies dyspnea, Denies wheezing and Denies other ( shortness of breath) Musc Denies numbness and Denies tingling Neuro Denies dizziness, Denies headache(s), Denies numbness, Denies tingling, Denies paresthesias and Denies weakness Psych Denies anxiety and Denies depression Endo Denies fatigue Aller/Immun Denies wheezing Physical exam (Primary Care) Vital Signs: Last Vital Signs Pulse 68 08/01/23 15:50 BP 134/80 08/01/23 15:50 Pulse Ox 97 08/01/23 15:50 Oxygen Delivery Method Room Air 08/01/23 15:50 BMI result Body Mass Index 29.0 Tobacco/Smoking Status: Tobacco use Status Tobacco use date assessed 08/01/23 08/01/23 15:55 Patient Tobacco Use Status Never used Tobacco 08/01/23 15:55 e-Cigarette/Vaping Use Never Used 08/01/23 15:55 Thrive Assessment: Date of Thrive Assessment Date Thrive assessed 10/11/22 08/01/23 15:55 Const General: no acute distress and well developed Nutritional Appearance: well nourished Orientation/consciousness: patient oriented x3 HENMT Head: Yes normocephalic and Yes atraumatic Eyes General: appearance normal, both eyes and all related structures Pupils: Equal, round and reactive pupils present EOM: EOMs intact bilaterally Resp Effort & Inspection: normal respiratory effort Auscultation: clear to auscultation bilaterally Cardio Rate: regular rate Rhythm: regular rhythm Heart sounds: S1 normal heart sound present, S2 normal heart sound present, no gallops, no murmurs and no rubs Neuro General: patient oriented x3 and gait normal Cranial nerves: Yes Equal, round and reactive pupils present Psych Affect: normal affect Results AMB Hemoglobin A1c AMB Hemoglobin A1c 6.2 % Last Edit by Tonya Jimenez CMA on 08/01/23 16:10 Results Reviewed Results Reviewed: Laboratory Last Values Hgb A1c (Clinic) 6.2 % (4.0-6.0) H 08/01/23 16:07 Assessment and Plan Assessment & Plan (1) Essential hypertension: Code(s): I10 - Essential (primary) hypertension Plan: Blood?pressure?is?controlled. Goal?is?less?than?140/90 Continue?current?medication Orders: Orders UA and rflx microscopic Today Z00.00 - Encounter for general adult medical examination without abnormal findings TSH reflex Free T4 Today Z00.00 - Encounter for general adult medical examination without abnormal findings AMB Hemoglobin A1c Today Z13.9 - Encounter for screening, unspecified Comprehensive [place]. Panel Fast Today Z00.00 - Encounter for general adult medical examination without abnormal findings Complete Blood Count Auto Diff Today Z00.00 - Encounter for general adult me dical examination without abnormal findings Microalbumin, Random (w Creat) Today I10 - Essential (primary) hypertension Lipid Panel Today Z00.00 - Encounter for general adult medical examination without abnormal findings Coding Level of Care Code Est Pt Level 3 (50760) Diagnoses Essential hypertension I10
== END 2023-08-01 16:31 | disposition home or self-care (01) ==
PROVIDERS: PCP Family Medicine; Visit Provider Family Medicine
DX: I10 Essential (primary) hypertension (principal); R73.03 Prediabetes
CPT/HCPCS: 83036; 99213

== ENCOUNTER 2023-11-13 10:33 | Outpatient (REF) | payer MEDICARE, SELFPAY ==
[2023-11-13 10:55] LABS: MANUAL DIFF FLAG NO
[2023-11-13 11:10] LABS: Basophils Absolute Auto 0.1 X10*3/uL (0.0-0.2); Basophils Percent Auto 0.9 % (0-2); Eosinophils Absolute Auto 0.1 X10*3/uL (0.0-0.4); Eosinophils Percent Auto 2.4 % (0-4); Hemoglobin 14.3 g/dl (12.0-16.0); Imm Gran Abs Auto 0.13 X10*3/uL (0.00-0.03); Imm Gran Pct Auto 2.2 % (0.0-0.4); Lymphocytes Absolute Auto 1.6 X10*3/uL (1.2-4.9); Lymphocytes Percent Auto 27.5 % (20-40); Mean Corpuscular HGB Conc 32.5 g/dl (31.0-35.0); Mean Corpuscular Hemoglobin 28.7 pg (27.0-33.0); Mean Corpuscular Volume 88.2 fL (80.0-98.0); Mean Platelet Volume 12.7 fL (9.4-12.3); Monocytes Absolute Auto 0.6 X10*3/uL (0.1-1.2); Monocytes Percent Auto 10.6 % (2-11); Neutrophils Absolute Auto 3.3 x10*3/uL (2.0-8.3); Neutrophils Percent Auto 56.4 % (45-73); Platelet Count 196 X10*3/uL (160-400); Red Blood Count 4.99 X10*6/uL (4.20-5.50); Red Cell Distribution Width 13.3 % (11.0-16.0); White Blood Count 5.8 X10*3/uL (4.8-10.8)
[2023-11-13 11:41] LABS: Appearance Urine Turbid; Color Urine Yellow; Glucose Urine UA Negative (Negative); Leukocyte Esterase Urine Large (3+) (Negative); Nitrite Urine Negative (Negative); PH 5.5 (5.0-9.0); UMIC TRIGGER UA YES; Urine Blood Negative (Negative); Urine Ketones Negative (Negative); Urine Protein Negative (Neg-Trace)
[2023-11-13 11:53] LABS: Alanine Aminotransferase 17 U/L (0-31); Alkaline Phosphatase 81 U/L (39-117); Anion Gap 12 (12-20); Aspartate Amino Transferase 19 U/L (5-31); Bilirubin Total 0.7 mg/dL (0.0-1.0); Blood Urea Nitrogen 21 mg/dL (9-16); Calcium 9.2 mg/dL (8.4-10.2); Carbon Dioxide 25 mmol/L (22-29); Chloride 106 mmol/L (96-108); Cholesterol 197 mg/dL (<200); Estimated Glomerular Filt Rate > 60; Glucose Fasting 121 mg/dL (60-99); HDL Cholesterol 69 mg/dL (>40); LDL Cholesterol Calculated 109 mg/dL (<100); Sodium 139 mmol/L (135-145); Total Protein 6.6 g/dL (6.5-8.0); Triglycerides 95 mg/dL (<150)
[2023-11-13 12:03] LABS: Creatinine Urine 106.02 mg/dL; Microalbum/Creatinine Ratio Ur 28.2 ug/mg cr (<30)
[2023-11-13 12:07] LABS: Bacteria Urine 4+ (None Seen); Hyaline Casts Urine 0-2 /LPF (0-2); RBC Urine 0-2 /HPF (0-2); Renal Epithelial Cells Urine Present; Squamous Epithelial Cell Urine >20 /HPF (0-2); WBC Urine 21-50 /HPF (0-5)
[2023-11-13 12:08] LABS: Transitional Epi Cells Urine None seen
[2023-11-13 12:10] LABS: TSH reflex Free T4 2.15 uIU/mL (0.32-4.0)
== END 2023-11-13 10:34 | disposition home or self-care (01) ==
LOC: HO.LAB 10:33
PROVIDERS: PCP Family Medicine; Visit Provider Family Medicine
DX: Z00.00 Encounter for general adult medical examination without abnormal findings (principal); I10 Essential (primary) hypertension
CPT/HCPCS: 36415; 80053; 80061; 81001; 82043; 82570; 84443; 85025

== ENCOUNTER 2023-11-15 13:56 | Outpatient (AMB) | payer MEDICARE, SELFPAY ==
--- NOTE | 2023-11-15 13:59 | MHC.PC.OV ---
Vital Signs 11/15/23 14:01 11/15/23 15:08 Height 5 ft 8 in Weight 193 lb 4 oz BMI 29.4 BP 130/60 140/80 H Blood Pressure Location Rt brachial Lt brachial Position Sitting Sitting Pulse 70 63 Pulse Source Pulse Oximeter Pulse Oximeter Pulse Oximetry (%) 96 94 Oxygen Delivery Method Room Air Room Air Intake Visit Reasons: PE, follow up labs Intake Note: Patient is here today for a physical with lab results. 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: Not Required per policy Accompanied by: Self / Same As Patient Allergies No Known Allergies Allergy (Verified 11/15/23 14:01) Tobacco use date assessed: 11/15/23 Fall risk assessment: No Falls in past year Last assessed Fall Risk: 11/15/23 Dental Screening Dental Screen Date: 11/15/23 Did you have a dental visit in the last 12 months?: Yes Did you have a dental problem in the last 6 months where you did not have access to dental care?: No Was dental information given to patient?: Patient has dentist HPI PE, follow up labs HPI Details 88 y/o female presents for a CPE with f/u labs and health maintenance. Labs were drawn 11/13/23. Reviewed labs with pt. Triglycerides 95. TC 197. LDL 109. HDL 69. 4+ urine bacteria and pt denies any symptoms. [facility] Medical History Pre-diabetes Essential hypertension Surgical History No pertinent past surgical history Social History Housing: House Alcohol intake: current Alcohol intake frequency: holidays/special occasions only Patient Tobacco Use Status: Never used Tobacco e-Cigarette/Vaping Use: Never Used Second Hand Smoke Exposure: No service: No Current occupational status: retired Current occupational exposures/hazards: No Cognitive needs: No Hearing needs: No Vision needs: No Questionnaire PHQ-9 Over the last 2 weeks, how often have you been bothered by any of the following problems? 1. Little interest or pleasure in doing things: not at all 2. Feeling down, depressed, or hopeless: not at all 3. Trouble falling or staying asleep, or sleeping too much: not at all 4. Feeling tired or having little energy: not at all 5. Poor appetite or overeating: not at all 6. Feeling bad about yourself - or that you are a failure or have let yourself or your family down: not at all 7. Trouble concentrating on things, such as reading the newspaper or watching television: not at all 8. Moving or speaking so slowly that other people could have noticed. Or the opposite - being so fidgety or restless that you have been moving around a lot more than usual: not at all 9. Thoughts that you would be better off or of hurting yourself in some way: not at all Total score: 0 Depression Screening Interpretation: Negative Depression Screening Done: Yes Source: Developed by Drs. Lj Maharaj, Ami Marks, Arik Castillo and colleagues, with an educational yaa from [email or web address]. Thrive Questionnaire Date Thrive assessed: 11/15/23 I am a: Patient What is your living situation today?: I have a steady place to live Within the past 12 months, did the food you bought not last and you didn't have the money to get more?: Never true Within the past 12 months, did you worry whether your food would run out before you got money to buy more?: Never true Do you have trouble paying for medicines?: No Do you have trouble getting transportation to medical appointments?: No Do you have trouble paying your heating and electricity bill?: No Do you have trouble taking care of your child, family member or friend?: No Do you have trouble with day-to-day activities such as bathing, preparing meals, shopping, managing finances, etc.?: No Are you currently unemployed and looking for a job?: No Are you interested in more education?: No Currently or been in a relationship where the following occur: no concerns reported THRIVE Score: 0 AUDIT C Alcohol Use Questionnaire (AUDIT-C) 1. How often do you have a drink containing alcohol?: Monthly or less 2. How many drinks containing alcohol do you have on a typical day when you are drinking?: 1 or 2 Total Score: 1 CARINA-7 AMB Questionnaire CARINA-7 Date CARINA - 7 assessed: 11/15/23 Feeling nervous, anxious, or on edge: 0 = Not at all Not being able to stop or control worryin = Not at all Worrying too much about different things: 0 = Not at all Trouble relaxin = Not at all Being so restless that it is hard to sit still: 0 = Not at all Becoming easily annoyed or irritable: 0 = Not at all Feeling afraid as if something awful might happen: 0 = Not at all Total CARINA-7 score (0-4 normal; 5-9 mild; 10-14 moderate; 15-21 severe): 0 Source: Developed by Drs. Lj Maharaj, Ami Marks, Arik Castlilo and colleagues, with an educational yaa from [email or web address]. Review of Systems Const Denies chills, Denies fatigue, Denies fever(s), Denies headache(s) and Denies weakness Eyes Denies change in vision ENT Denies dizziness, Denies headache(s), Denies hearing loss, Denies nasal congestion, Denies sinus pain, Denies sinus pressure and Denies sore throat Card Denies chest pain, Denies lightheadedness, Denies dyspnea and Denies other (palpitations) Resp Denies cough, Denies dyspnea and Denies wheezing GI Denies abdominal pain, Denies melena, Denies hematochezia, Denies change in bowel habits, Denies dyspepsia and Denies nausea Denies hematuria and Denies dysuria Musc Denies abnormal gait, Denies myalgias, Denies arthralgias, Denies numbness and Denies tingling Skin/Breast Denies rash, Denies unusual bruising and Denies wounds Neuro Denies abnormal gait, Denies dizziness, Denies headache(s), Denies memory loss, Denies numbness, Denies Sensory deficit (Neuro), Denies tingling and Denies weakness Psych Denies anxiety, Denies depression and Denies memory loss Endo Denies cold intolerance, Denies fatigue, Denies heat intolerance, Denies polydipsia and Denies polyuria Jerry/Lymph Denies easy bleeding and Denies easy bruising Aller/Immun Denies wheezing Physical exam (Primary Care) Vital Signs: Last Vital Signs Pulse 70 11/15/23 14:01 BP 130/60 11/15/23 14:01 Pulse Ox 96 11/15/23 14:01 Oxygen Delivery Method Room Air 11/15/23 14:01 BMI result Body Mass Index 29.4 Tobacco/Smoking Status: Tobacco use Status Tobacco use date assessed 11/15/23 11/15/23 14:04 Patient Tobacco Use Status Never used Tobacco 11/15/23 14:04 e-Cigarette/Vaping Use Never Used 11/15/23 14:04 PHQ-9: PHQ-9 Score PHQ-9: Total score 0 11/15/23 14:28 Depression Screening Interpretation: Negative Thrive Assessment: Date of Thrive Assessment Date Thrive assessed 11/15/23 11/15/23 14:04 Currently or been in a relationship where the following occur: no concerns reported Const General: no acute distress, well developed, alert and awake Nutritional Appearance: well nourished Orientation/consciousness: patient oriented x3 HENMT Head: Yes normocephalic and Yes atraumatic Ears: hearing grossly normal bilaterally and TM's normal bilaterally General nose exam: Normal external nose present and Normal nares present Mouth: Normal oral and palatal mucosa present and moist mucous membranes Teeth and gingiva: dentition normal Throat: Yes posterior oropharynx normal Eyes General: appearance normal, both eyes and all related structures Pupils: Equal, round and reactive pupils present and Pupil accommodation reflex normal EOM: EOMs intact bilaterally Neck Neck: Yes normal visual inspection, Yes no lymphadenopathy and Yes trachea midline Thyroid: Thyroid normal Carotids: no bruits Lymphatic: no lymphadenopathy noted Chest Chest palpation & inspection: normal inspection of the chest Resp Effort & Inspection: normal respiratory effort Auscultation: clear to auscultation bilaterally Cardio Rate: regular rate Rhythm: regular rhythm Heart sounds: S1 normal heart sound present, S2 normal heart sound present, no gallops, no murmurs and no rubs Bruits: no abdominal aortic bruits and carotid bruit (Faint bruit at L carotid ) GI Palpation (GI): No Abdominal aortic bruit present, Soft to palpation, nontender, No hepatosplenomegaly present and No Rebound tenderness present Auscultation: normal bowel sounds General: Yes no CVA tenderness Back/Spine/Pelvis Back: no CVA tenderness Cervical Spine: cervical ROM normal and No Cervical spine tenderness Thoracic/Lumbar Spine: thoraco-lumbar ROM normal, No pain with thoraco-lumbar ROM, No thoracic spinal tenderness and No lumbar spinal tenderness Skin Lesions: no lesions Rashes: no rashes Trauma: no lacerations or abrasions Wounds: no wounds Nails: normal Neuro General: patient oriented x3 Cranial nerves: Yes Equal, round and reactive pupils present Cognition (Neuro): normal cognition Gait exam (Neuro): Normal gait present Motor exam (neuro): 5/5 motor strength present throughout Sensory Exam: No Sensory deficit (Neuro) Deep tendon reflexes (DTR's): Right patellar reflex intensity grade: 2+ and Left patellar reflex intensity grade: 2+ Extrem General: Yes normal to inspection and No edema Psych Appearance: grossly normal Affect: normal affect Attitude: cooperative Thought process: Normal thought process present Assessment and Plan Assessment & Plan (1) Asymptomatic bacteriuria: Code(s): R82.71 - Bacteriuria Plan: Denies?symptoms Hydrate?well (2) Essential hypertension: Code(s): I10 - Essential (primary) hypertension Plan: Blood?pressure?appears?controlled.??Goal?is?less?than?140/90 She?is?taking?hydrochlorothiazide?and?lisinopril. Hydrate?well She?notes?some?dizziness?with?lisinopril.??She?is?going?to?take?this?in?the?evenings?see?if?that?helps (3) Dizziness: Code(s): R42 - Dizziness and giddiness Plan: As?above,?patient?notes?some?dizziness.??She?also?had?mild?carotid?bruit?on?the?left Orthostatic?blood?pressures: ?Negative Will?check?carotid?duplex (4) Carotid bruit: Code(s): R09.89 - Other specified symptoms and signs involving the circulatory and respiratory systems Plan: As?above,?carotid?ultrasound?ordered (5) Adult general medical examination: Code(s): Z00.00 - Encounter for general adult medical examination without abnormal findings Plan: 88-year-old?female?presents?for?an?extended?exam Stable (6) Screening for osteoporosis: Code(s): Z13.820 - Encounter for screening for osteoporosis Plan: No?recent?bone?density-ordered Orders: Orders US carotid duplex BI Today R09.89 - Other specified symptoms and signs involving the circulatory and respiratory systems, R42 - Dizziness and giddiness XR DEXA axial skeleton Today M81.0 - Age-related osteoporosis without current pathological fracture Medications: Refilled hydrochlorothiazide 12.5 mg PO QAM 90 days 90 tabs 3RF lisinopril 20 mg PO DAILY 90 days 90 tabs 3RF Coding Level of Care Code Est Pt Level 4 (21113) Diagnoses Asymptomatic bacteriuria R82.71 Essential hypertension I10 Dizziness R42 Carotid bruit R09.89 Adult general medical examination Z00.00 Screening for osteoporosis Z13.820
[2023-11-15 14:01] VITALS: BP 130/60; PULSE 70; O2SAT 96; BMI 29.4
[2023-11-15 15:08] VITALS: BP 140/80; PULSE 63; O2SAT 94
[2023-11-15 15:09] VITALS: BP 160/60; PULSE 73; O2SAT 98
== END 2023-11-15 15:11 | disposition home or self-care (01) ==
PROVIDERS: PCP Family Medicine; Visit Provider Family Medicine
DX: R82.71 Bacteriuria (principal); I10 Essential (primary) hypertension; R42 Dizziness and giddiness; R09.89 Other specified symptoms and signs involving the circulatory and respiratory systems; Z00.00 Encounter for general adult medical examination without abnormal findings; Z13.820 Encounter for screening for osteoporosis
CPT/HCPCS: 99214

== ENCOUNTER 2023-12-19 14:26 | Outpatient (REF) | payer MEDICARE, SELFPAY ==
--- NOTE | ~2023-12-19 | US_ITS ---
EXAMINATION: US EXTRACRANIAL CAROTID DUPLEX, BILATERAL CLINICAL INFORMATION: Dizziness and giddiness COMPARISON: None available. TECHNIQUE: Real-time ultrasound and Doppler techniques (integrating B-mode 2-D vascular images, Doppler spectral analysis and color-flow Doppler imaging) were utilized to interrogate the extracranial carotid arteries, the vertebral arteries and proximal subclavian arteries bilaterally. The degree of stenosis is determined by criteria similar to NASCET. FINDINGS: Right Side: 1. There is mild atherosclerotic plaque seen in the bifurcation/proximal ICA region. 2. The common carotid artery PSV proximally is 66 cm/s and distally 58 cm/s. 3. The proximal internal carotid artery velocities are 51 cm/s systolic and 12 cm/s diastolic. 4. The proximal external carotid artery PSV is 118 cm/s. 5. The vertebral artery shows antegrade flow. 6. The subclavian artery waveforms are normal. Left Side: 1. There is mild atherosclerotic plaque seen in the bifurcation/proximal ICA region. 2. The common carotid artery PSV proximally is 96 cm/s and distally 82 cm/s. 3. The proximal internal carotid artery velocities are 54 cm/s systolic and 14 cm/s diastolic. 4. The proximal external carotid artery PSV is 76 cm/s. 5. The vertebral artery shows antegrade flow. 6. The subclavian artery waveforms are normal. US/US carotid duplex BI IMPRESSION: 1. RIGHT: Minimal, non-hemodynamically significant stenosis of the proximal right internal carotid artery corresponding to a 0-49% stenosis by velocity criteria. 2. LEFT: Minimal, non-hemodynamically significant stenosis of the proximal left internal carotid artery corresponding to a 0-49% stenosis by velocity criteria.
== END 2023-12-19 14:27 | disposition home or self-care (01) ==
LOC: HO.US 14:26
PROVIDERS: PCP Family Medicine; Visit Provider Family Medicine
DX: R42 Dizziness and giddiness (principal); R09.89 Other specified symptoms and signs involving the circulatory and respiratory systems; M81.0 Age-related osteoporosis without current pathological fracture
CPT/HCPCS: 93880

== ENCOUNTER 2024-02-09 13:21 | Outpatient (AMB) | payer MEDICARE, SELFPAY ==
--- NOTE | 2024-02-09 13:43 | MHC.PC.OV ---
Vital Signs 02/09/24 13:44 Height 5 ft 8 in Weight 191 lb 4 oz BMI 29.1 BP 138/70 Blood Pressure Location Rt brachial Position Sitting Respiration 14 Pulse 63 Pulse Source Pulse Oximeter Temp 97.8 F Temp Source Temporal Artery Scan Pulse Oximetry (%) 96 Oxygen Delivery Method Room Air Intake Visit Reasons: follow up/pre diabetes, wants bone density Esol Instructor Required: No Accompanied by: Self / Same As Patient Allergies No Known Allergies Allergy (Verified 02/09/24 13:47) Tobacco use date assessed: 11/15/23 Fall risk assessment: No Falls in past year Last assessed Fall Risk: 02/09/24 Dental Screening Dental Screen Date: 11/15/23 Did you have a dental visit in the last 12 months?: Yes Did you have a dental problem in the last 6 months where you did not have access to dental care?: No Was dental information given to patient?: Patient has dentist HPI follow up/pre diabetes, wants bone density HPI Details 88 y/o female presents to f/u pre-diabetes, bone density testing and carotid duplex. A1c today 02/09/24 6.1%. Had ordered a bone density test in October and pt states they had called her but they had conflicted with another appt. she had. [facility] Medical History Pre-diabetes Essential hypertension Surgical History No pertinent past surgical history Social History Housing: House Alcohol intake: current Alcohol intake frequency: holidays/special occasions only Patient Tobacco Use Status: Never used Tobacco e-Cigarette/Vaping Use: Never Used Second Hand Smoke Exposure: No service: No Current occupational status: retired Current occupational exposures/hazards: No Cognitive needs: No Hearing needs: No Vision needs: No Questionnaire Thrive Questionnaire Date Thrive assessed: 11/15/23 CARINA-7 AMB Questionnaire CARINA-7 Date CARINA - 7 assessed: 11/15/23 Source: Developed by Drs. Lj Maharaj, Ami Marks, Arik Castillo and colleagues, with an educational yaa from [employer]. Review of Systems Const Denies chills, Denies fatigue, Denies fever(s), Denies headache(s) and Denies weakness ENT Denies dizziness and Denies headache(s) Card Denies dyspnea Resp Denies cough, Denies dyspnea, Denies wheezing and Denies other (shortness of breath) Musc Denies numbness and Denies tingling Neuro Denies dizziness, Denies headache(s), Denies numbness, Denies tingling and Denies weakness Psych Denies anxiety and Denies depression Endo Denies fatigue Aller/Immun Denies wheezing Physical exam (Primary Care) Vital Signs: Last Vital Signs Temp 97.8 F 02/09/24 13:44 Pulse 63 02/09/24 13:44 Resp 14 02/09/24 13:44 BP 138/70 02/09/24 13:44 Pulse Ox 96 02/09/24 13:44 Oxygen Delivery Method Room Air 02/09/24 13:44 BMI result Body Mass Index 29.1 Tobacco/Smoking Status: Tobacco use Status Tobacco use date assessed 11/15/23 02/09/24 13:48 Patient Tobacco Use Status Never used Tobacco 02/09/24 13:48 e-Cigarette/Vaping Use Never Used 02/09/24 13:48 Thrive Assessment: Date of Thrive Assessment Date Thrive assessed 11/15/23 02/09/24 13:48 Const General: well developed; No acute distress Nutritional Appearance: well nourished Orientation/consciousness: patient oriented x3 [facility] Head: Yes normocephalic and Yes atraumatic Eyes General: appearance normal, both eyes and all related structures Pupils: Equal, round and reactive pupils present EOM: EOMs intact bilaterally Resp Effort & Inspection: normal respiratory effort Neuro General: patient oriented x3 and gait normal Cranial nerves: Yes Equal, round and reactive pupils present Psych Affect: normal affect Results AMB Hemoglobin A1c AMB Hemoglobin A1c 6.1 % Last Edit by YANCY Kuo on 02/09/24 14:06 Results Reviewed Results Reviewed: Laboratory Last Values Hgb A1c (Clinic) 6.1 % (4.0-6.0) H 02/09/24 14:05 Assessment and Plan Assessment & Plan (1) Pre-diabetes: Code(s): R73.03 - Prediabetes Plan: A1c?6.1%?and?steady.??This?is?pre?diabetes?range Continue?to?work?on?a?diet?lower?in?sugars?and?starches Will?continue?to?monitor (2) Screening for osteoporosis: Code(s): Z13.820 - Encounter for screening for osteoporosis Plan: Had?ordered?bone?density?test?for?patient?but?timing?overlapped?with?her?carotid?duplex?so?she?missed?this. I?reordered?it?and?we?can?follow-up?at?her?next?visit Plan Patient?had?had?some?dizziness?or?lightheadedness?and?I?had?ordered?a?carotid?duplex.??She?notes?now?that?she?had?accidentally?started?taking?an?old?prescription?of?lisinopril-hydrochlorothiazide?rather?than?just?lisinopril?and?this?seems?to?have?bee n?the?cause?of?her?symptoms. Carotid?duplex?did?not?show?any?hemodynamically?significant?abnormalities. Orders: Orders AMB Hemoglobin A1c Today R73.03 - Prediabetes Coding Level of Care Code Est Pt Level 3 (70351) Diagnoses Pre-diabetes R73.03 Screening for osteoporosis Z13.820
[2024-02-09 13:44] VITALS: BP 138/70; PULSE 63; RESP 14; TEMP 36.6; O2SAT 96; BMI 29.1
== END 2024-02-09 14:21 | disposition home or self-care (01) ==
PROVIDERS: PCP Family Medicine; Visit Provider Family Medicine
DX: R73.03 Prediabetes (principal); Z13.820 Encounter for screening for osteoporosis
CPT/HCPCS: 83036; 99213

== ENCOUNTER 2024-10-11 14:35 | Outpatient (AMB) | payer MEDICARE, SELFPAY ==
--- NOTE | 2024-10-11 14:56 | MHC.PC.OV ---
Vital Signs 10/11/24 15:06 Height 5 ft 8 in Weight 187 lb 4 oz BMI 28.5 BP 158/70 H Blood Pressure Location Lt brachial Position Sitting Respiration 14 Pulse 52 Pulse Source Pulse Oximeter Pulse Oximetry (%) 97 Oxygen Delivery Method Room Air Intake Visit Reasons: follow up/pre diabetes, bp Intake Note: f/u for pre-dm and b/p Allergies No Known Allergies Allergy (Verified 10/11/24 15:05) Tobacco use date assessed: 11/15/23 Dental Screening Dental Screen Date: 11/15/23 HPI follow up/pre diabetes, bp HPI Details 89 y/o female presents to f/u hypertension, pre-diabetes. Last A1c 6.1%. A1c today improved to 5.9%. BP today 158/70, 52p. He is on lisinopril 20mg, HCTZ 25mg. HPI Comments History of Present Illness Details Documentation assistance for Carroll Patel MD, was provided by Tj Lozada,? Client Experience Manager on 10/11/2024 at 3:23 PM EST. I, Dr. Patel, have read, observed, and verified documentation. ?? [facility] Medical History Pre-diabetes Essential hypertension Surgical History No pertinent past surgical history Social History Housing: House Alcohol intake: current Alcohol intake frequency: holidays/special occasions only Patient Tobacco Use Status: Never used Tobacco e-Cigarette/Vaping Use: Never Used Second Hand Smoke Exposure: No service: No Current occupational status: retired Current occupational exposures/hazards: No Cognitive needs: No Hearing needs: No Vision needs: No Questionnaire Thrive Questionnaire Date Thrive assessed: 11/15/23 CARINA-7 AMB Questionnaire CARINA-7 Date CARINA - 7 assessed: 11/15/23 Source: Developed by Drs. Lj Maharaj, Ami Marks, Arik Castillo and colleagues, with an educational yaa from [employer]. Review of Systems Const Denies chills, Denies fatigue, Denies fever(s), Denies headache(s) and Denies weakness ENT Denies dizziness and Denies headache(s) Card Denies dyspnea Resp Denies cough, Denies dyspnea, Denies wheezing and Denies other (shortness of breath) Musc Denies numbness and Denies tingling Neuro Denies dizziness, Denies headache(s), Denies numbness, Denies tingling and Denies weakness Psych Denies anxiety and Denies depression Endo Denies fatigue Aller/Immun Denies wheezing Physical exam (Primary Care) Vital Signs: Last Vital Signs Pulse 52 10/11/24 15:06 Resp 14 10/11/24 15:06 BP 158/70 H 10/11/24 15:06 Pulse Ox 97 10/11/24 15:06 Oxygen Delivery Method Room Air 10/11/24 15:06 BMI result Body Mass Index 28.5 Tobacco/Smoking Status: Tobacco use Status Tobacco use date assessed 11/15/23 10/11/24 14:58 Patient Tobacco Use Status Never used Tobacco 10/11/24 14:58 e-Cigarette/Vaping Use Never Used 10/11/24 14:58 Thrive Assessment: Date of Thrive Assessment Date Thrive assessed 11/15/23 10/11/24 14:58 Const General: well developed; No acute distress Nutritional Appearance: well nourished Orientation/consciousness: patient oriented x3 HENMT Head: Yes normocephalic and Yes atraumatic Eyes General: appearance normal, both eyes and all related structures Pupils: Equal, round and reactive pupils present EOM: EOMs intact bilaterally Resp Effort & Inspection: normal respiratory effort Neuro General: patient oriented x3 and gait normal Cranial nerves: Yes Equal, round and reactive pupils present Psych Affect: normal affect Coding Level of Care Code Est Pt Level 3 (14112) Diagnoses Essential hypertension I10 Pre-diabetes R73.03 Assessment & Plan Assessment & Plan (1) Essential hypertension: Code(s): I10 - Essential (primary) hypertension Category: Medical Plan: BP elevated. Goal is less than 140/90 Increased HCTZ and continued Lisinopril (2) Pre-diabetes: Code(s): R73.03 - Prediabetes Category: Medical Plan: A1c is improved; 5.9% Continue?working?at?a?diet?low?in?sugars?and?starches Will?continue?to?monitor Medications: Changed From hydrochlorothiazide 12.5 mg PO QAM 90 days 90 tabs 3RF To hydrochlorothiazide 25 mg PO QAM 90 days 90 tabs 3RF
[2024-10-11 15:06] VITALS: BP 158/70; PULSE 52; RESP 14; O2SAT 97; BMI 28.5
== END 2024-10-11 15:30 | disposition home or self-care (01) ==
PROVIDERS: PCP Family Medicine; Visit Provider Family Medicine
DX: I10 Essential (primary) hypertension (principal); R73.03 Prediabetes

== ENCOUNTER → 2024-10-11 14:35 | Outpatient (BNVA) | payer MEDICARE, SELFPAY | PROVIDERS: PCP Family Medicine; Visit Provider Family Medicine | DX: I10 Essential (primary) hypertension (principal); R73.03 Prediabetes | CPT/HCPCS: 83036; 99212 ==

== ENCOUNTER 2025-01-17 14:30 | Outpatient (AMB) | payer MEDICARE, SELFPAY ==
--- NOTE | 2025-01-17 14:49 | MHC.PC.OV ---
Vital Signs 01/17/25 14:51 Height 5 ft 8 in Weight 188 lb 8 oz BMI 28.7 BP 130/70 Blood Pressure Location Rt brachial Position Sitting Respiration 16 Pulse 64 Pulse Source Pulse Oximeter Temp 98.0 F Temp Source Oral Pulse Oximetry (%) 96 Oxygen Delivery Method Room Air Intake Visit Reasons: f/u HTN, preDM Intake Note: patient is scheduled for htn and dm follow up Control Clerk Repairs Required: No Allergies No Known Allergies Allergy (Verified 01/17/25 14:50) Medication List - Last Reconciled 01/17/25 by Carroll Patel MD blood pressure monitor Automatic, Digital. Dx: I10. Daily As directed, 999 days/lifetime dorzolamide-timolol 22.3-6.8 mg/mL 1 drp ophthalmic (eye) BID hydrochlorothiazide 25 mg PO QAM 90 days lisinopril 20 mg PO DAILY 90 days mycophenolate mofetil 500 mg PO BID naproxen 500 mg PO Q12H PRN tramadol 50 mg PO DAILY PRN Tobacco use date assessed: 11/15/23 Dental Screening Dental Screen Date: 11/15/23 HPI f/u HTN, preDM HPI Details 89 y/o female presents to f/u hypertension, pre-diabetes. A1c had been stable around 6.1%. Encouraged lifestyle changes. Last A1c 10/11/24 5.9%. A1c today 01/17/25 is 6.1%. Blood pressure today 130/70. Ongoing complaints of dizziness/lightheadedness. PFSH Medical History Pre-diabetes Essential hypertension Surgical History No pertinent past surgical history Social History Housing: House Alcohol intake: current Alcohol intake frequency: holidays/special occasions only Patient Tobacco Use Status: Never used Tobacco e-Cigarette/Vaping Use: Never Used Second Hand Smoke Exposure: No service: No Current occupational status: retired Current occupational exposures/hazards: No Cognitive needs: No Hearing needs: No Vision needs: No Questionnaire Thrive Questionnaire Date Thrive assessed: 11/15/23 CARINA-7 AMB Questionnaire CARINA-7 Date CARINA - 7 assessed: 11/15/23 Source: Developed by Drs. Lj Maharaj, Ami Marks, Arik Castillo and colleagues, with an educational yaa from [employer]. Physical exam (Primary Care) Vital Signs: Last Vital Signs Temp 98.0 F 01/17/25 14:51 Pulse 64 01/17/25 14:51 Resp 16 01/17/25 14:51 BP 130/70 01/17/25 14:51 Pulse Ox 96 01/17/25 14:51 Oxygen Delivery Method Room Air 01/17/25 14:51 BMI result Body Mass Index 28.7 Tobacco/Smoking Status: Tobacco use Status Tobacco use date assessed 11/15/23 01/17/25 14:54 Patient Tobacco Use Status Never used Tobacco 01/17/25 14:54 e-Cigarette/Vaping Use Never Used 01/17/25 14:54 Thrive Assessment: Date of Thrive Assessment Date Thrive assessed 11/15/23 01/17/25 14:54 Coding Level of Care Code Est Pt Level 4 (95102) Diagnoses Essential hypertension I10 Lightheadedness R42 Dizziness R42 Pre-diabetes R73.03 Assessment & Plan Assessment & Plan (1) Essential hypertension: Code(s): I10 - Essential (primary) hypertension Category: Medical Plan: Blood?pressure?is?controlled.??Goal?is?less?than?140/90 Continue?lisinopril?and?hydrochlorothiazide (2) Lightheadedness: Code(s): R42 - Dizziness and giddiness Category: Medical Plan: Ongoing?complaints?of?lightheadedness She?had?had?think?carotid?bruit?but carotid ultrasound?negative?for?hemodynamically?significant?stenoses Still?on?going?lightheadedness/dizziness. Worse?when?standing?up. Encouraged?good?hydration Referring?her?to?Cardiology (3) Dizziness: Code(s): R42 - Dizziness and giddiness Category: Medical Plan: As above (4) Pre-diabetes: Code(s): R73.03 - Prediabetes Category: Medical Plan: A1c?climbed?from?5.9%?to?6.1%.??Still?in?pre?diabetes?range Encouraged?diet?lower?in?sugars?and?starches Orders: Referrals Cardiology Referral R42 - Dizziness and giddiness
[2025-01-17 14:51] VITALS: BP 130/70; PULSE 64; RESP 16; TEMP 36.7; O2SAT 96; BMI 28.7
== END 2025-01-17 15:25 | disposition home or self-care (01) ==
LOC: HO.HMCFM 14:31
PROVIDERS: PCP Family Medicine; Visit Provider Family Medicine
DX: I10 Essential (primary) hypertension (principal); R42 Dizziness and giddiness; R73.03 Prediabetes

== ENCOUNTER → 2025-01-17 14:30 | Outpatient (BNVA) | payer MEDICARE, SELFPAY | PROVIDERS: PCP Family Medicine; Visit Provider Family Medicine | DX: I10 Essential (primary) hypertension (principal); R42 Dizziness and giddiness; R73.03 Prediabetes; Z79.899 Other long term (current) drug therapy | CPT/HCPCS: 83036; 99212 ==

== ENCOUNTER 2025-04-22 14:47 | Outpatient (AMB) | payer MEDICARE, SELFPAY ==
--- NOTE | 2025-04-22 14:50 | A.OFFPC_ITS ---
Vital Signs 04/22/25 15:04 04/22/25 15:07 Height 5 ft 8 in Weight 187 lb 8 oz BMI 28.5 BP 140/80 H 140/80 H Blood Pressure Location Lt brachial Lt brachial Position Sitting Sitting Respiration 14 Pulse 84 Pulse Source Auscultation Temp 98.1 F Temp Source Oral Pulse Oximetry (%) 96 Oxygen Delivery Method Room Air Intake Visit Reasons: f/u HTN, preDM Intake Note: patient is scheduled for htn and pre-dm follow up Contour Grinder Required: No Allergies No Known Allergies Allergy (Verified 04/22/25 15:05) Tobacco use date assessed: 11/15/23 Dental Screening Dental Screen Date: 11/15/23 HPI f/u HTN, preDM HPI Details 89 y/o female presents to f/u HTN, predi abetes. Prior A1c 01/17/25 6.1%. A1c today 6.0%. Pt had ongoing lightheadedness/dizziness and referred her to cardiology. Has an appt in April. Reports ongoing dizziness which has felt the same since last office visit. Blood pressure today 140/80, 111p. HPI Comments History of Present Illness Details Documentation assistance for Carroll Patel MD, was provided by Tj Lozada,? Cheese Maker on 04/22/2025 at 3:09 PM EST. I, Dr. Patel, have read, observed, and verified documentation. ?? [facility] Medical History Pre-diabetes Essential hypertension Surgical History No pertinent past surgical history Social History Housing: House Alcohol intake: current Alcohol intake frequency: holidays/special occasions only Patient Tobacco Use Status: Never used Tobacco e-Cigarette/Vaping Use: Never Used Second Hand Smoke Exposure: No service: No Current occupational status: retired Current occupational exposures/hazards: No Cognitive needs: No Hearing needs: No Vision needs: No Questionnaire PHQ-9 Over the last 2 weeks, how often have you been bothered by any of the following problems? 1. Little interest or pleasure in doing things: not at all 2. Feeling down, depressed, or hopeless: not at all 3. Trouble falling or staying asleep, or sleeping too much: not at all 4. Feeling tired or having little energy: several days 5. Poor appetite or overeating: not at all 6. Feeling bad about yourself - or that you are a failure or have let yourself or your family down: not at all 7. Trouble concentrating on things, such as reading the newspaper or watching television: not at all 8. Moving or speaking so slowly that other people could have noticed. Or the opposite - being so fidgety or restless that you have been moving around a lot more than usual: not at all 9. Thoughts that you would be better off or of hurting yourself in some way: not at all Total score: 1 Source: Developed by Drs. Lj Maharaj, Ami Marks, Arik Castillo and colleagues, with an educational yaa from [employer]. Thrive Questionnaire Date Thrive assessed: 11/15/23 I am a: Patient What is your living situation today?: I have a steady place to live Within the past 12 months, did the food you bought not last and you didn't have the money to get more?: Never true Within the past 12 months, did you worry whether your food would run out before you got money to buy more?: Never true Do you have trouble paying for medicines?: No Do you have trouble getting transportation to medical appointments?: No Do you have trouble paying your heating and electricity bill?: No Do you have trouble taking care of your child, family member or friend?: No Do you have trouble with day-to-day activities such as bathing, preparing meals, shopping, managing finances, etc.?: No Are you currently unemployed and looking for a job?: No Are you interested in more education?: No Please select the resources that you would like help with: None Currently or been in a relationship where the following occur: No concerns reported THRIVE Score: 0 AUDIT C Alcohol Use Questionnaire (AUDIT-C) 1. How often do you have a drink containing alcohol?: 2-4 times a month 2. How many drinks containing alcohol do you have on a typical day when you are drinking?: 1 or 2 3. How often do you have six or more drinks on one occasion?: Never Total Score: 2 CARINA-7 AMB Questionnaire CARINA-7 Date CARINA - 7 assessed: 11/15/23 Feeling nervous, anxious, or on edge: 0 = Not at all Not being able to stop or control worryin = Not at all Worrying too much about different things: 0 = Not at all Trouble relaxin = Not at all Being so restless that it is hard to sit still: 0 = Not at all Becoming easily annoyed or irritable: 0 = Not at all Feeling afraid as if something awful might happen: 0 = Not at all Total CARINA-7 score (0-4 normal; 5-9 mild; 10-14 moderate; 15-21 severe): 0 Source: Developed by Drs. Lj Maharaj, Ami Marks, Arik Castillo and colleagues, with an educational yaa from [employer]. Review of Systems Const Denies chills, Denies fatigue, Denies fever(s), Denies headache(s) and Denies weakness ENT Denies dizziness and Denies headache(s) Card Denies dyspnea Resp Denies cough, Denies dyspnea, Denies wheezing and Denies other (shortness of breath) Musc Denies numbness and Denies tingling Neuro Denies dizziness, Denies headache(s), Denies numbness, Denies tingling and Denies weakness Psych Denies anxiety and Denies depression Endo Denies fatigue Aller/Immun Denies wheezing Physical exam (Primary Care) Vital Signs: Last Vital Signs Temp 98.1 F 04/22/25 15:04 Pulse 111 H 04/22/25 15:04 Resp 14 04/22/25 15:04 BP 140/80 H 04/22/25 15:07 Pulse Ox 96 04/22/25 15:04 Oxygen Delivery Method Room Air 04/22/25 15:04 BMI result Body Mass Index 28.5 Tobacco/Smoking Status: Tobacco use Status Tobacco use date assessed 11/15/23 04/22/25 14:50 Patient Tobacco Use Status Never used Tobacco 04/22/25 14:50 e-Cigarette/Vaping Use Never Used 04/22/25 14:50 PHQ-9: PHQ-9 Score PHQ-9: Total score 1 04/22/25 15:09 Thrive Assessment: Date of Thrive Assessment Date Thrive assessed 11/15/23 04/22/25 14:50 Currently or been in a relationship where the following occur: No concerns reported Const General: well developed; No acute distress Nutritional Appearance: well nourished Orientation/consciousness: patient oriented x3 HENMT Head: Yes normocephalic and Yes atraumatic Eyes General: appearance normal, both eyes and all related structures Pupils: Equal, round and reactive pupils present EOM: EOMs intact bilaterally Resp Effort & Inspection: normal respiratory effort Auscultation: clear to auscultation bilaterally Cardio Rate: regular rate Rhythm: regular rhythm Heart sounds: S1 normal heart sound present, S2 normal heart sound present, no gallops, no murmurs and no rubs Neuro General: patient oriented x3 and gait normal Cranial nerves: Yes Equal, round and reactive pupils present Psych Affect: normal affect Coding Level of Care Code Est Pt Level 4 (74884) Diagnoses Essential hypertension I10 Pre-diabetes R73.03 Lightheadedness R42 Assessment & Plan Assessment & Plan (1) Essential hypertension: Code(s): I10 - Essential (primary) hypertension Category: Medical Plan: Blood pressure is just a little above goal of less than 140/90 No medication changes made today. Continue lisinopril and hydrochlorothiazide as prescribed. She notes that she has been eating were amputated chips lately and I recommended she work on avoiding salt/sodium. (2) Pre-diabetes: Code(s): R73.03 - Prediabetes Category: Medical Plan: A1c improved from 6.1% to 6.0%. Still in pre diabetes range Encouraged a diet lower in sugars and starches We can continue to monitor this (3) Lightheadedness: Code(s): R42 - Dizziness and giddiness Category: Medical Plan: Ongoing lightheadedness. She says this is not worsened but has not gone away. She has an upcoming appointment with cardiology May 06. Follow-up with Cardiology as recommended
[2025-04-22 15:04] VITALS: BP 140/80; PULSE 84; RESP 14; TEMP 36.7; O2SAT 96; BMI 28.5
[2025-04-22 15:07] VITALS: BP 140/80
--- OUTSIDE RECORDS SUMMARY | 2025-04-22 15:35 | XMS_ITS | Clinical Summary ---
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 Active SPIRONOLACTONE ORAL Take by mouth. Active tramadol HCl (TRAMADOL ORAL) Take by mouth. Active LISINOPRIL ORAL Take by mouth. Active IBUPROFEN ORAL Take by mouth. Active Active Problems No known active problems Family History Medical History Relation Comments Diabetes Neg Hx Glaucoma Neg Hx Macular degeneration Neg Hx Social History Tobacco Use Types Packs/Day Years Used Date Smoking Tobacco: Never Smokeless Tobacco: Never Alcohol Use Standard Drinks/Week Comments Yes 0 (1 standard drink = 0.6 oz pur e alcohol) Education Answer Date Recorded Are you interested in more education? Not on chris e 01/20/2023 Are you concerned about learning? Not on file 01/20/2023 No 01/20/2023 No 01/20/2023 Digital Access Answer Date Recorded No 02/18/2023 No 02/18/2023 No 02/18/2023 Reliable internet access at home? Not on file 02/18/2023 Device with a working camera? Not on file Comments Unknown Sex and Gender Information Value Date Recorded Sex Assigned at Not on file Legal Sex Female 3:50 PM EDT Gender Identity Not on file Sexual Orientation Not on file Plan of Treatment Health Maintenance Due Date Last Done Comments CREATININE LEVEL 1937 POTASSIUM LEVEL 1937 DEPRESSION SCREENING 1949 ZOSTER VACCINES (1 of 2) 1987 OSTEOPOROSIS SCREENING INITI AL (ONE-TIME) 2002 RSV VACCINE (1 - 1-dose 75+ series) 2012 PNEUMOCOCCAL VACCINES (50+ years) (2 of 2 - PCV) 10/30/2020 10/30/2019 COVID-19 VACCINE (3 - 2023-2 5 season) 2024 02/03/2021, 01/06/2021 Adult Td,Tdap Booster 10/30/2029 10/30/2019 HEPATITIS A VACCINES Aged Out No long er eligible based on patient's age to complete this topic HIB VACCINES Aged Out No longer eligi ble based on patient's age to complete this topic MENINGOCOCCAL VACCINES (ACWY) Aged Out No longer eligible based on patient's age to complete this topic MENINGOCOCCAL VACCINES (B) Aged Out N o longer eligible based on patient's age to complete this topic Medical Devices Not on file Insurance [place] H[place] BLUE REPLACEMENT Care Teams Crane Operator Cab Relationship Specialty Start Date End Date Unknown, Unknown, PCP - General 01/11/18 Additional Source Comments The information contained in this document represents components of the legal health record. It is not the complete legal health record.[facility]
== END 2025-04-22 15:24 | disposition home or self-care (01) ==
LOC: HO.HMCFM 14:48
PROVIDERS: PCP Family Medicine; Visit Provider Family Medicine
DX: I10 Essential (primary) hypertension (principal); R73.03 Prediabetes; R42 Dizziness and giddiness

== ENCOUNTER → 2025-04-22 14:47 | Outpatient (BNVA) | payer MEDICARE, SELFPAY | PROVIDERS: PCP Family Medicine; Visit Provider Family Medicine | DX: I10 Essential (primary) hypertension (principal); R73.03 Prediabetes; R42 Dizziness and giddiness; Z79.899 Other long term (current) drug therapy; Z13.30 Encounter for screening examination for mental health and behavioral disorders, unspecified | CPT/HCPCS: 96127; 99212 ==

== ENCOUNTER 2025-05-13 13:57 | Outpatient (REF) | payer MEDICARE, SELFPAY ==
[2025-05-13 16:02] LABS: Hematocrit 45.9 % (37.0-47.0); Hemoglobin 14.9 g/dl (12.0-16.0); Mean Corpuscular HGB Conc 32.5 g/dl (31.0-35.0); Mean Corpuscular Hemoglobin 28.8 pg (27.0-33.0); Mean Corpuscular Volume 88.6 fL (80.0-98.0); NRBC Abs Auto 0.000 X10*3/uL (0.0-0.012); NRBC Pct Auto 0.0 /100WBC (0.0-0.2); Platelet Count 168 X10*3/uL (160-400); Red Blood Count 5.18 X10*6/uL (4.20-5.50); White Blood Count 8.1 X10*3/uL (4.8-10.8)
[2025-05-13 16:26] LABS: B Type Natriuretic Peptide 184 pg/mL (<100)
[2025-05-13 16:34] LABS: Alanine Aminotransferase 24 U/L (0-31); Albumin Level 4.3 g/dL (3.5-5.0); Alkaline Phosphatase 82 U/L (39-117); Anion Gap 14 (12-20); Aspartate Amino Transferase 29 U/L (5-31); Blood Urea Nitrogen 23 mg/dL (9-16); Calcium 9.3 mg/dL (8.4-10.2); Carbon Dioxide 27 mmol/L (22-29); Chloride 103 mmol/L (96-108); Estimated Glomerular Filt Rate > 60; Potassium 4.4 mmol/L (3.3-5.1); Sodium 140 mmol/L (135-145); Total Protein 6.7 g/dL (6.5-8.0)
== END 2025-05-13 13:58 | disposition home or self-care (01) ==
LOC: HO.LAB 13:57
PROVIDERS: PCP Family Medicine; Visit Provider Internal Medicine Cardiovascular Disease
DX: I48.91 Unspecified atrial fibrillation (principal); R42 Dizziness and giddiness; R06.02 Shortness of breath
CPT/HCPCS: 36415; 80048; 80076; 83880; 84443; 85027; 93005; 99202

== ENCOUNTER 2025-05-13 13:57 | Outpatient (AMB) | payer MEDICARE, SELFPAY ==
--- NOTE | 2025-05-13 13:59 | A.OFFVIS_ITS ---
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 Dx: I10. Daily As directed, 999 days/lifetime dorzolamide-timolol 22.3-6.8 mg/mL 1 drp ophthalmic (eye) BID hydrochlorothiazide 25 mg PO QAM 90 days lisinopril 20 mg PO DAILY 90 days tramadol 50 mg PO DAILY HPI Comments Details: Elizabeth was referred here for symptoms of lightheadedness, dizziness. She is a very poor historian. She is not able to describe his symptoms much. She says she intermittently gets these episodes of dizziness. She in fact came to the office and says she was having dizzy episode. Noted to be in atrial fibrillation with rapid ventricular response. She says she gets these episodes intermittently. She has not had any loss of consciousness. She also describes increased shortness of breath. She has prior history of hypertension which has been well treated. She has no history of congestive heart failure, TIA, stroke, diabetes, cardiomyopathy. She denies any symptoms exertional chest pain. [facility] Medical History Pre-diabetes Essential hypertension Surgical History No pertinent past surgical history Social History Housing: House Alcohol intake: current Alcohol intake frequency: holidays/special occasions only Patient Tobacco Use Status: Never used Tobacco e-Cigarette/Vaping Use: Never Used Second Hand Smoke Exposure: No service: No Current occupational status: retired Current occupational exposures/hazards: No Cognitive needs: No Hearing needs: No Vision needs: No Review of Systems Const Denies chills, Denies daytime sleepiness, Denies fatigue, Denies fever(s), Denies frequent falls, Denies poor appetite, Denies snoring, Denies stops breathing during sleep, Denies weakness, Denies weight gain and Denies weight loss Eyes Denies loss of vision ENT Reports dizziness and Denies hearing loss Card Denies chest pain, Denies claudication, Denies leg edema, Reports lightheadedness, Denies palpitations, Denies dyspnea, Reports dyspnea on exertion and Denies orthopnea Resp Denies cough, Denies excessive phlegm production, Denies dyspnea, Reports dyspnea on exertion, Denies snoring and Denies wheezing GI Denies abdominal pain, Denies hematochezia, Denies change in bowel habits, Denies nausea and Denies vomiting Denies urinary frequency and Denies dysuria Musc Denies arthralgias, Denies muscle weakness and Denies numbness Skin/Breast Denies nail changes and Denies rash Neuro Denies Abnormal speech present, Reports dizziness, Denies frequent falls, Denies loss of vision, Denies memory loss, Denies numbness and Denies weakness Psych Denies depression and Denies memory loss Endo Denies fatigue and Denies palpitations Jerry/Lymph Reports easy bruising and Reports other (anemia) Aller/Immun Denies wheezing Physical Exam Vital Signs: Last Vital Signs Pulse 121 H 05/13/25 14:00 BP 120/82 05/13/25 14:00 BMI result Body Mass Index 28.2 Const General: cooperative, comfortable, no acute distress, alert and awake Nutritional Appearance: obese Orientation/consciousness: patient oriented x3 HEENT Head: Yes normocephalic and Yes atraumatic Neck Neck: Yes trachea midline, Yes supple and Yes no JVD Resp Effort & Inspection: decreased respiratory effort Auscultation: clear to auscultation bilaterally Cardio Jugular venous distension: no JVD Rate: tachycardic Rhythm: abnormal rhythm irregularly irregular Heart sounds: S1 normal heart sound present, S2 normal heart sound present, no click, no gallops, no murmurs and no rubs GI Auscultation: normal bowel sounds Skin General skin exam: no rashes or lesions noted Neuro General: patient oriented x3 and no focal motor deficits Speech: No Abnormal speech present Extrem General: Yes no clubbing, cyanosis or edema Psych Appearance: grossly normal Office Procedures EKG Details: EKG shows atrial fibrillation rapid ventricular response at 121 beats per minute with septal QS pattern 51130-[id number], Complete Assessment & Plan Assessment & Plan (1) Atrial fibrillation with rapid ventricular response: Code(s): I48.91 - Unspecified atrial fibrillation Category: Medical Plan: New onset atrial fibrillation rapid ventricular response could be responsible for symptoms of dizziness. She also has increased shortness of breath probably related to loss of AV synchrony. Will obtain blood work today including BNP and BNP. Will start on rate control therapy with Toprol 50 mg daily and started on oral anticoagulation therapy with Eliquis 5 mg b.i.d. with CHADSVASc score of at least 4. Repeat blood work in week to 2 weeks time. I think she would benefit from rhythm control approach were will need to obtain a baseline echocardiogram to assess for LV systolic function as well as biatrial chamber size to guide therapy. She has significant atrial enlargement will require antiarrhythmic drug support with amiodarone to help in his assist with cardioversion to help maintain jail rhythm control. Will determine in his symptoms improved with rhythm control. This was discussed with her. She understands and agrees for this management plan. Follow-up echocardiogram near future. No indication for diuretic therapy. Worsening symptoms of heart failure were discussed with her. Will follow with her in few weeks time, sooner p.r.n.. Thank you for allowing me to partake in her care Orders: Orders TSH reflex Free T4 05/13/25 I48.91 - Unspecified atrial fibrillation XR chest 2V 05/13/25 I48.91 - Unspecified atrial fibrillation Basic Metabolic Panel 05/13/25 I48.91 - Unspecified atrial fibrillation Complete Blood Count no Diff 05/13/25 I48.91 - Unspecified atrial fibrillation B Type Natriuretic Peptide 05/13/25 I48.91 - Unspecified atrial fibrillation Liver Panel 05/13/25 I48.91 - Unspecified atrial fibrillation ECG 3 day holter monitor 05/16/25 I48.91 - Unspecified atrial fibrillation Medications: New metoprolol succinate ER (Toprol XL) 50 mg PO DAILY 30 tabs 5RF I48.91 - Unspecified atrial fibrillation apixaban (Eliquis) 5 mg PO BID 60 tabs 5RF I48.91 - Unspecified atrial fibrillation Changed From lisinopril 20 mg PO DAILY 90 days 90 tabs 3RF I48.91 - Unspecified atrial fibrillation To lisinopril 10 mg (1/2 x 20 mg) PO DAILY 45 tabs 3RF 90 days I48.91 - Unspecified atrial fibrillation Discontinued hydrochlorothiazide Discontinued Reason: Doctor's Order 25 mg PO QAM 90 days 90 tabs 3RF Coding Level of Care Code New Pt Level 4 (12567) Complex EM visit Add On G2211 Diagnoses Atrial fibrillation with rapid ventricular response I48.91 CPT Codes EKG - CPT: 89426-[id number], Complete ([id number])
[2025-05-13 14:00] VITALS: BP 120/82; PULSE 121; BMI 28.2
--- OUTSIDE RECORDS SUMMARY | 2025-05-13 15:17 | XMS_ITS | Clinical Summary ---
Author Organization [facility] Address [address] [facility] [address] [place] [id number] Phone Care Team Providers Care Health And Safety Instructor Name Role Phone Unknown, Unknown Primary Care [...] [place] Care Teams Health And Safety Instructor Relationship Specialty Start Date End Date Unknown, Unknown, PCP - General 01/11/18 Additional Source Comments The information contained in this document represents components of the legal health record. It is not the complete legal health record.[facility]
== END 2025-05-13 14:32 | disposition home or self-care (01) ==
LOC: HO.HCS 13:58
PROVIDERS: PCP Family Medicine; Visit Provider Internal Medicine Cardiovascular Disease
DX: I48.91 Unspecified atrial fibrillation (principal)
CPT/HCPCS: 93010; 99204; G2211

== ENCOUNTER → 2025-05-16 13:51 | Outpatient (REF) | payer MEDICARE, SELFPAY ==
--- OUTSIDE RECORDS SUMMARY | 2025-05-16 13:55 | XMS_ITS | Clinical Summary ---
Author Organization [facility] Address [address] [facility] [address] [place] [phone] Phone Care Team Providers Care Vb Net Programmer Name Role Phone Unknown, Unknown Primary Care [...] [place] Care Teams Vb Net Programmer Relationship Specialty Start Date End Date Unknown, Unknown, PCP - General 01/11/18 Additional Source Comments The information contained in this document represents components of the legal health record. It is not the complete legal health record.[facility]
--- NOTE | 2025-05-16 14:01 | HM_ITS ---
* Total monitoring time 2 days. * Underlying rhythm is atrial fibrillation with an average rate of 79/Min. * About 6% of the time, rate > 100/Min. * Rare ventricular ectopy. Few couplets. One triplet. * No significant pauses or high-grade AV blocks. * Symptoms of imbalance, shortness of breath associated with atrial fibrillation. MTDD
--- NOTE | 2025-05-16 14:01 | CA_ITS ---
Transthoracic Echocardiogram Patient (Last, First, Middle): Elizabeth Reyes E Gender: F Date of : 1935 Age: 89 Procedure Date: 05/16/2025 Procedure Type: Transthoracic Echocardiogram Location: OP Height: 170.18 cm Weight: 84.37 kg BSA: 1.96 m2 Heart Rate: bpm BP: 140 / 82 mmHg Front Desk Attendant: TO Referring MD: Mauricio Arzate MD Twx Operator: Mauricio Arzate MD Symptoms: I48.91 - Unspecified atrial fibrillation Study Quality: Fair/Contrast ECG Rhythm: Atrial Fibrillation Conclusions: - 1. 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 2. Biatrial enlargement, left greater than right with moderate left atrial enlargement 3. Mild mitral regurgitation 4. Upper limits of normal RV systolic pressure with mildly elevated right atrial pressures 5. Upper limits of normal ascending aortic size 6. No gross pericardial effusion Findings Procedure Information Contrast agent, definity, is being given per protocol without apparent complications. Left Ventricle Normal left ventricular cavity size. There is normal left ventricular wall thickness. The left ventricular systolic function is moderately decreased. The visually estimated ejection fraction is between 35-40%. There is moderate global hypokinesis. Diastolic function is indeterminate on the basis of available data. Right Ventricle Mildly increased right ventricular cavity size. There is moderate to severely decreased right ventricular systolic function. Atria The left atrium is moderately dilated. There is no evidence of interatrial shunt. The right atrium is mildly dilated. Aortic Valve There is no aortic valve stenosis. There is no aortic valve regurgitation. Mitral Valve Normal mitral valve structure and function. There is mild mitral valve regurgitation. There is no mitral valve stenosis. Pulmonic Valve The pulmonic valve is likely normal. There is trace to mild pulmonic valve regurgitation. Tricuspid Valve Normal tricuspid valve structure. There is mild tricuspid valve regurgitation. Mildly elevated right atrial pressure. There is no evidence of pulmonary hypertension. Great Vessels The pulmonary artery was not well visualized. There is no dilatation of the ascending aorta measuring 3.50 cm. Venous The inferior vena cava is mildly dilated and collapses less than 50% with inspiration. Pericardium/Pleural There is no evidence of pericardial effusion. Prior Study Comparison No prior study available for comparison. Measurements 2D Linear Measurements IVSd: 1.05 0.6-0.9/0.6-1.0 cm LVIDd: 4.50 3.9-5.3/4.2-5.9 cm LVIDd Index: 2.30 2.4-3.2/2.2-3.1 cm/m2 LVIDs: 3.35 2.0-3.6 cm LVPWd: 0.97 0.7-1.1 cm LA Diam: 3.80 2.7-3.8/3.0-4.0 cm LAIDs Index: 1.94 1.5-2.3 cm/m2 LV Mass: 193.35 67-162/88-224 g LV Mass Index: 98.65 43-95/49-115 g/m2 LVOT Diam: 2.00 3.0+(-)1.3 cm 2D Systolic Function EF 4C: 42.70 >55% EF 2C: 33.20 >55% EF BiP: 38.60 >55% Mitral Valve MV Pk E: 0.75 MV Decel Time: 178.00 E'Lateral: 9.57 E'Medial: 5.73 E/E' Med: 13.20 E/E' Lat: 7.90 PHT: 52.00 MVA PHT: 4.23 Decel [place]: 4.33 Aortic Valve AoV Pk Evgeny: 0.94 AoV Pk Grad: 4.00 LVOT LVOT Pk Evgeny: 0.61 LVOT Mn Evgeny: 0.39 LVOT VTI: 0.10 LVOT Pk Grad: 1.00 LVOT Mn Grad: 1.00 LVOT Diam: 2.00 LVOT Area: 3.14 Diastolic Function MV Pk E: 0.75 E'Medial: 5.73 E/E' Med: 13.20 E' Laterial: 9.57 E/E' Lat: 7.90 Right Ventricle TAPSE (mm): 9.09 TVS' Evgeny: 6.31 Tricuspid Valve TR Pk Evgeny: 2.73 TR Pk Grad: 30.00 RA Press: 8.00 RVSP: 38.00 Great Vessels Aorta Sinus of Valsalva: 3.47 2.0-3.[address] [place]: 2.50 1.7-3.4 cm Ao Asc: 3.50 2.1-3.4 cm Updated in Other Vendor System with Status of Final Mauricio Arzate MD electronically signed on 05/17/2025 12:20:53 PM with status of Final
== END ==
LOC: HO.CARD 13:51
PROVIDERS: PCP Family Medicine; Visit Provider Internal Medicine Cardiovascular Disease
DX: I48.91 Unspecified atrial fibrillation (principal)
CPT/HCPCS: 93242; 93306; Q9957

== ENCOUNTER → 2025-05-16 14:01 | Outpatient (BNV) | payer MEDICARE, SELFPAY | PROVIDERS: PCP Family Medicine; Visit Provider Internal Medicine Cardiovascular Disease | DX: I51.7 Cardiomegaly (principal); I51.89 Other ill-defined heart diseases | CPT/HCPCS: 93306 ==

== ENCOUNTER 2025-05-23 13:52 | Outpatient (REF) | payer MEDICARE, SELFPAY ==
--- NOTE | ~2025-05-23 | XR_ITS ---
EXAMINATION: XR CHEST CLINICAL INFORMATION: I48.91 - Unspecified atrial fibrillation COMPARISON: None available. TECHNIQUE: 2 views of the chest were obtained. FINDINGS: There is clinically. There are increased interstitial markings with Francisco B lines right lateral lower lung encephalization of pulmonary vascularity. There is no pleural effusion. Moderate degenerative changes noted in the thoracic spine.. Severe degenerative changes are present in both shoulder joints. XR/XR chest 2V IMPRESSION: Cardiomegaly and pulmonary vascular congestion with increased interstitial markings. Electronically signed by: Artemio De León MD 05/23/2025 02:27 PM EDT
--- OUTSIDE RECORDS SUMMARY | 2025-05-23 13:55 | XMS_ITS | Clinical Summary ---
Author Organization [facility] Address [address] [facility] [address] [place] [phone] Phone Care Team Providers Care General Internist And Physician Leader Name Role Phone Unknown, Unknown Primary Care [...] [place]AC[place] Care Teams General Internist And Physician Leader Relationship Specialty Start Date End Date Unknown, Unknown, PCP - General 01/11/18 Additional Source Comments The information contained in this document represents components of the legal health record. It is not the complete legal health record.[facility]
== END 2025-05-23 13:53 | disposition home or self-care (01) ==
LOC: HO.XRAY 13:52
PROVIDERS: PCP Family Medicine; Visit Provider Internal Medicine Cardiovascular Disease
DX: I48.91 Unspecified atrial fibrillation (principal)
CPT/HCPCS: 36415; 71046; 84443

== ENCOUNTER → 2025-05-23 14:12 | Outpatient (BNV) | payer MEDICARE, SELFPAY | PROVIDERS: PCP Family Medicine; Visit Provider Radiology Diagnostic Radiology | DX: I48.91 Unspecified atrial fibrillation (principal); I51.7 Cardiomegaly; J81.1 Chronic pulmonary edema | CPT/HCPCS: 71046 ==

== ENCOUNTER 2025-06-06 12:24 | Day surgery (SDC) | payer MEDICARE, SELFPAY ==
--- OUTSIDE RECORDS SUMMARY | 2025-05-27 15:10 | XMS_ITS | Clinical Summary ---
Author Organization [facility] Address [address] [facility] [address] [place] [phone] Phone Care Team Providers Care Capacity Planning Manager Name Role Phone Unknown, Unknown Primary Care [...] VACCINES (1 of 2) 1987 OSTEOPOROSIS SCREENING INITIAL (ONE-TIME) 2002 RSV VACCINE (1 - 1-dose 75+ series) 2012 PNEUMOCOCCAL VACCINES (50+ years) (2 of 2 - PCV) 10/30/2020 10/30/2019 INFLUENZA VACCINE (#1) 2025 0, 07/04/2019, 07/23/2018, Additional history exists COVID-19 VACCINE (3 - 2024- season) 2025 02/03/2021, 01/06/2021 Adult Td,Tdap Booster 10/30/2029 10/30/2019 [...] [place]ACEMENT Care Teams Capacity Planning Manager Relationship Specialty Start Date End Date Unknown, Unknown, PCP - General 01/11/18 Additional Source Comments The information contained in this document represents components of the legal health record. It is not the complete legal health record.[facility]
[2025-06-04 09:48] VITALS: BMI 28.1
--- NOTE | 2025-06-04 10:38 | HO.ANESPROP2 ---
Documented by User: Leanna Moreau NP 06/04/25 10:44 HPI - Anesthesia Eval Consult details Narrative: 89yo F for Cardioversion Eliquis for afib - new onset 04/2025 with RVR PMFSH Active Problems Active Problems: All Active Problems Atrial fibrillation with rapid ventricular response (Acute) Lightheadedness (Acute) Screening for osteoporosis (Acute) Carotid bruit (Acute) Asymptomatic bacteriuria (Acute) Skin tag (Acute) Seborrheic keratosis (Acute) Dizziness (Acute) Bilateral shoulder pain (Acute) Dysuria (Acute) UTI (urinary tract infection) (Acute) Adult general medical examination (Acute) Pre-diabetes (Acute) Essential hypertension (Acute) Past Medical History Medical History Bilateral cataracts Carotid bruit Atrial fibrillation with rapid ventricular response Pre-diabetes Essential hypertension Surgical History Surgical History H/O colonoscopy Social History Social History Housing: House Alcohol intake: current Alcohol intake frequency: holidays/special occasions only Patient Tobacco Use Status: Never used Tobacco e-Cigarette/Vaping Use: Never Used Second Hand Smoke Exposure: No Use of substances other than those prescribed or required for medical reasons: No Are you DNR?: No Advance Directives: No Advance Directives Information Provided: Yes Patient : No : No Poor oral hygiene: No service: No Current occupational status: retired Current occupational exposures/hazards: No Cognitive needs: No Hearing needs: No Vision needs: No Meds Allergies Allergy/AdvReac Type Severity Reaction Status Date / Time No Known Allergies Allergy Verified 04/22/25 15:05 Home Medications ?Medication ?Instructions ?Recorded ?Confirmed ?Last Taken ?Type dorzolamide 22.3 mg-timolol 6.8 1 drp ophthalmic (eye) BID 08/11/20 06/04/25 06/06/25 History mg/mL eye drops Exam Height,Weight and Vital Signs: Height 5 ft 8 in Weight 83.915 kg Pertinent Lab Results Pertinent Lab Results: Laboratory Tests 05/13/25 05/23/25 15:03 14:09 WBC 8.1 Hgb 14.9 Hct 45.9 Plt Count 168 Sodium 140 Potassium 4.4 Chloride 103 Carbon Dioxide 27 Anion Gap 14 BUN 23 H Creatinine 0.77 B-Natriuretic Peptide 184 H TSH 2.19 Narrative Narrative: EKG 04/2025 Details: EKG shows atrial fibrillation rapid ventricular response at 121 beats per minute with septal QS pattern ECHO 04/2025 Conclusions: - 1. 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 2. Biatrial enlargement, left greater than right with moderate left atrial enlargement 3. Mild mitral regurgitation 4. Upper limits of normal RV systolic pressure with mildly elevated right atrial pressures 5. Upper limits of normal ascending aortic size 6. No gross pericardial effusion Holter 04/2025 Total monitoring time 2 days. Underlying rhythm is atrial fibrillation with an average rate of 79/Min. About 6% of the time, rate > 100/Min. Rare ventricular ectopy. Few couplets. One triplet. No significant pauses or high-grade AV blocks. Symptoms of imbalance, shortness of breath associated with atrial fibrillation. XR chest 2V 04/2025 IMPRESSION: Cardiomegaly and pulmonary vascular congestion with increased interstitial markings. US carotid duplex BI 2023 IMPRESSION: 1. RIGHT: Minimal, non-hemodynamically significant stenosis of the proximal right internal carotid artery corresponding to a 0-49% stenosis by velocity criteria. 2. LEFT: Minimal, non-hemodynamically significant stenosis of the proximal left internal carotid artery corresponding to a 0-49% stenosis by velocity criteria. Assessment and Plan Assessment Anesthesia Assessment: Chart Reviewed Documented by User: Lary Galeas MD 06/06/25 13:25 COUNT INCLUDES THE [facility] Past Medical History Medical History Bilateral cataracts Carotid bruit Atrial fibrillation with rapid ventricular response Pre-diabetes Essential hypertension Family History Family history of problems with anesthesia: No Surgical History Surgical History H/O colonoscopy History of Problems with Anesthesia: No Social History Social History Housing: House Alcohol intake: current Alcohol intake frequency: holidays/special occasions only Patient Tobacco Use Status: Never used Tobacco e-Cigarette/Vaping Use: Never Used Second Hand Smoke Exposure: No Use of substances other than those prescribed or required for medical reasons: No Are you DNR?: No Advance Directives: No Advance Directives Information Provided: Yes Patient : No : No Poor oral hygiene: No service: No Current occupational status: retired Current occupational exposures/hazards: No Cognitive needs: No Hearing needs: No Vision needs: No Meds Allergies Allergy/AdvReac Type Severity Reaction Status Date / Time No Known Allergies Allergy Verified 04/22/25 15:05 Home Medications ?Medication ?Instructions ?Recorded ?Confirmed ?Last Taken ?Type dorzolamide 22.3 mg-timolol 6.8 1 drp ophthalmic (eye) BID 08/11/20 06/04/25 06/06/25 History mg/mL eye drops Exam Airway Mallampati Class: II TM Dist: <=3cm Neck ROM: Limited Heart: afib Lungs: cta Assessment and Plan Assessment Anesthesia Assessment: Anesthesia Plan Discussed Final Anesthetic Review Family History of Problems with Anesthesia: No History of Problems with Anesthesia: No NPO: Yes ASA Class: III (lisinopril 10 mg ordered, b.p 190/110 in pre op, pt forgot her medication) Final Preanesthetic Review: No Changes in Pt Med Stat, Meds/Allgs Chart Reviewed, Consent Obtained/Reviewed and Anes Risks/Benef Reviewed Patient Risk: Intermediate Procedure Risk: Low Anesthetic Plan Anesthetic Plan: MAC: Disposition: Standard PACU
[2025-06-06] VITALS (9 sets, daily range): BP systolic 106–193; BP diastolic 41–111; PULSE 43–85; RESP 16–28; TEMP 36.1–37.1; O2SAT 95–96; BMI 29.5
--- NOTE | 2025-06-06 13:11 | PC.NURSE ---
woke up this morning more tired and more hazy in her eyesight denies headache, no cp, denies dizziness. feels My normal weakness denies numbness tingling in bilateral legs, bilateral arms or face. 3mm bilateral reactive puils. equal hand grasps. equal symmetrical smile. woke up at 9am this morning with these symptoms.
--- NOTE | 2025-06-06 13:21 | PC.NURSE ---
anesthesia by bedside evaluating patient.
[2025-06-06] MEDS: Lactated Ringers 1,000 ML 50 ML IVCONT (13:28)
--- NOTE | 2025-06-06 13:55 | MHC.SHP ---
Pre-Procedural Eval Section A - 24 Hr Update-Section A only Date of Service: 06/06/25 The patient is an INPATIENT: No Changes since office visit: Yes Changes in Medication and Yes Patient answered all questions; No Cold of Flu in the past 2 weeks and No New Medical Problems The patient has been examined within 24 hours of the surgical procedure. The History & Physical has been completed within 30 days and I have reviewed it.: Yes Section B - Complete if H&P > 30 days Chief Complaint: Unspecified atrial fibrillation Allergies: Allergies Allergy/AdvReac Type Severity Reaction Status Date / Time No Known Allergies Allergy Verified 04/22/25 15:05 Plan I have reviewed the history and physical and performed a pertinent physical examination on my patient. No changes have occurred unless specified. Time Spent With Patient Time: Total time managing care of this patient today ____ minutes.
--- NOTE | 2025-06-06 13:59 | PC.NURSE ---
report given to parish in pacu moved to bed 5 for procedure
--- NOTE | 2025-06-06 14:40 | ECG_ITS ---
Test Reason : post cardioversion Blood Pressure : */* mmHG Vent. Rate : 53 BPM Atrial Rate : 53 BPM P-R Int : 216 ms QRS Dur : 84 ms QT Int : 438 ms P-R-T Axes : * 2 26 degrees QTcB Int : 410 ms Sinus bradycardia with 1st degree A-V block Low voltage QRS Nonspecific T wave abnormality Abnormal ECG When compared with ECG of 29-Jun-2005 11:09, Nonspecific T wave abnormality, worse in Inferior leads Nonspecific T wave abnormality, worse in Anterolateral leads Referred By: Mauricio Arzate Electronically Signed By: MAURICIO ARZATE MD
--- NOTE | 2025-06-06 15:06 | P.PNCAR_ITS ---
Cardioversion Procedure Note Cardioversion Date of Procedure: 06/06/2025 Ordering Provider: Zarina Arzate Performing Provider: Zarina Arzate Indication for Procedure: Persistent atrial fibrillation with LV systolic dysfunction Pre-Op Diagnosis: Same Post-Op Diagnosis: Normal sinus rhythm Performed with Transesophageal Echo: No History: See my office note Consent: Verbal and Written consent was obtained from the patient before starting and after confirming oral amiodarone as well as oral anticoagulation use. The patient was made aware of the risk of synchronized cardioversion including benefits and alternatives Procedure: After consent obtained, cardioversion pads were attached in anteroposterior con figuration and the patient was sedated by the anesthesia team. Once adequate sedation achieved, patient was delivered 200 joules of biphasic synchronized energy x2. Complications: None Impression: Normal sinus rhythm Recommendations: 1. 12 lead EKG 2. Continue amiodarone at 200 mg daily 3. Continue full oral anticoagulation.
== END 2025-06-06 15:30 | disposition home or self-care (01) ==
PROVIDERS: PCP Family Medicine; Visit Provider Internal Medicine Cardiovascular Disease
PROC: 5A2204Z Restoration of Cardiac Rhythm, Single (ICD-10-PCS; principal; 2025-06-06 14:00)
DX: I48.19 Other persistent atrial fibrillation (principal); I10 Essential (primary) hypertension; R73.03 Prediabetes; Z79.01 Long term (current) use of anticoagulants; Z79.899 Other long term (current) drug therapy
CPT/HCPCS: 92960; 93005; J2003; J2704

== ENCOUNTER → 2025-06-06 12:24 | Outpatient (BNV) | payer MEDICARE, SELFPAY | PROVIDERS: PCP Family Medicine; Visit Provider Internal Medicine Cardiovascular Disease | DX: I48.91 Unspecified atrial fibrillation (principal) | CPT/HCPCS: 92960 ==